=== PATIENT | female | born 1945 | race Caucasian/White ===

== ENCOUNTER 2018-01-22 07:40 | Observation (INO) | payer MEDICARE, BC ==
[2018-01-22] MEDS ORDERED: Aspirin 81 mg CHEW TAB* 81 MG TAB.CHEW PO ONE (07:52)
--- NOTE | 2018-01-22 08:08 | ED ---
HPI Chest Pain - HPI Summary HPI Summary: Pt is a 73 y/o female who presents to the ED c/o chest pressure. She woke up this morning with mid-sternal chest pressure. Pt took half a Xanax and drank some water, which did not help. She then took another half Xanax. On the way to the ED, she felt nauseated and was burping a lot, which relieved the pressure some. Pt then felt lightheaded. She denies any weakness, dizziness, SOB, or vomiting. Pt is on diuretics. She denies taking potassium supplements. Pt is accompanied by her . HR 43 bpm while in the room. PMHx HTN and minor heart valve leakage. She has seen Dr. Marcus in the past. - History of Current Complaint Chief Complaint: EDChestPainROMI Time Seen by Provider: 01/22/18 07:52 Hx Obtained From: Patient Onset/Duration: Started Hours Ago - This morning, Still Present Timing: Constant Current Severity: Mild Pain Intensity: 3 Pain Scale Used: 0-10 Numeric Chest Pain Location: Mid Sternal Chest Pain Radiates: No Character: Pressure/Squeezing Aggravating Factor(s): Nothing Alleviating Factor(s): Spontaneous Resolution Associated Signs and Symptoms: Positive: Lightheadedness, Nausea. Negative: Vomiting - Allergy/Home Medications Allergies/Adverse Reactions: Allergies Allergy/AdvReac Type Severity Reaction Status Date / Time RED FOOD COLORING Allergy Palpitation Uncoded 12/15/12 10:31 s PMH/Surg Hx/FS Hx/Imm Hx Cardiovascular History: Reports: Hx Hypertension - ON DAILY MEDS, CONTROLLED, Hx Valvular Heart Disease - "MINIR" HEART VALVE LEAKS GI History: Reports: Other GI Disorders - DIVERTICULOSIS, NO Sx Musculoskeletal History: Reports: Hx Arthritis - HANDS, SHOULDERS, HIPS, Other Musculoskeletal History - HYPERLORDOSIS Sensory History: Reports: Hx Cataracts, Hx Contacts or Glasses - GLASSES Opthamlomology History: Reports: Hx Cataracts, Hx Contacts or Glasses - GLASSES Psychiatric History: Reports: Hx Anxiety - PRN MEDS - Surgical History Surgery Procedure, Year, and Place: YOUNG CHILD T&A [facility]J. 1970 ANAL [facility]. 1999 RT SHOULDER [facility]. 2000 [facility] Hx Anesthesia Reactions: Yes - SLOW TO WAKE UP Infectious Disease History: No Infectious Disease History: Denies: Traveled Outside the [place] in Last 30 Days - Family History Known Family History: Positive: Cardiac Disease, Hypertension, Other - stroke - Social History Alcohol Use: None Hx Substance Use: No Substance Use Type: Reports: None Hx Tobacco Use: No Smoking Status (MU): Never Smoked Tobacco Review of Systems Positive: Chest Pain - pressure Negative: Shortness Of Breath Positive: Nausea, Other - burping. Negative: Vomiting Neurological: Other - lightheadedness, NEGATIVE: dizziness Negative: Weakness All Other Systems Reviewed And Are Negative: Yes Physical Exam - Summary Physical Exam Summary: Appearance: Well appearing, no pain distress Skin: warm, dry, reflects adequate perfusion Head/face: normal Eyes: EOMI, MARIJA ENT: mucous membranes moist Neck: supple, non-tender Respiratory: CTA, breath sounds present Cardiovascular: bradycardia, slight murmur, pulses symmetrical Abdomen: non-tender, soft Bowel Sounds: present Musculoskeletal: normal, strength/ROM intact Neuro: normal, sensory motor intact, A&Ox3 Triage Information Reviewed: Yes Vital Signs On Initial Exam: Initial Vitals Temp Pulse Resp BP Pulse Ox 97.1 F 36 18 135/42 99 01/22/18 07:46 01/22/18 07:46 01/22/18 07:46 01/22/18 07:46 01/22/18 07:46 Vital Signs Reviewed: Yes Diagnostics - Vital Signs Vital Signs Temp Pulse Resp BP Pulse Ox 01/22/18 07:46 97.1 F 36 18 135/42 99 - Laboratory Result Diagrams: 01/22/18 08:18 01/22/18 08:18 Lab Statement: Any lab studies that have been ordered have been reviewed, and results considered in the medical decision making process. - Radiology CXR Radiology Interpretation Completed By: Radiologist Summary of Radiographic Findings: NO ACTIVE CARDIOPULMONARY DISEASE. ED physician reviewed radiology report. - EKG 7:57 Cardiac Rate: Bradycardia - [address] Segment: Normal Summary of EKG Findings: 2nd degree AV block type II, RBBB, nl axis 8:13 Cardiac Rate: NL - 79 bpm EKG Rhythm: Sinus Rhythm ST Segment: Normal Summary of EKG Findings: RBBB, nl axis Re-Evaluation - Re-Evaluation First Eval Re-Evaluation Time: 08:10 Change: Improved Comment: Pt's HR now in the 80s. Chest Pain Course/Dx - Course Course Of Treatment: Nurse's note reviewed. Patient presents with chest pressure and lightheadedness that began this morning. She is in [place] type II block on arrival. Cardiology consultation and came to the ER promptly. Patient spontaneously converted shortly after arrival. She has been in normal sinus rhythm with occasional episodes of block since. Discussed with hospitalist who will be accepting the patient to telemetry floor. 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 Admit for further. - Chest Pain Differential Diagnosis/HQI/PQRI: Acute MO, ACS, Angina, GI Disease, Lower Respiratory Infection, Other: - Arrhythmia - Diagnoses Provider Diagnoses: Chest pain, Second degree AV block, Mobitz type II, Hypertension - Provider Notifications Discussed Care Of Patient With: Booker Lim Time Discussed With Above Provider: 08:15 Instructed by Provider To: Other - Dr. Lim will visit the pt in the ED. At 8: [address] Coates in the ICU, and he will participate as needed. At 8:32 Dr. Lim arrived to the ED. At 8:51 Dr. Lim would like to observe the pt for longer. At 9:10 Dr. Chan accepts pt for admission. - Critical Care Time Critical Care Time: 30-74 min - CCT is EXCLUSIVE of separately billable procedures. Discharge - Sign-Out/Discharge Documenting (check all that apply): Patient Departure - Admit - Discharge Plan Condition: Fair Disposition: ADMITTED TO [facility] Referrals: Steve Thomas MD [Primary Care Provider] - - Billing Disposition and Condition Condition: FAIR Disposition: Admitted to [facility] - Attestation Statements Document Initiated by Lorrieibe: Yes Documenting Scribe: Monalisa Aviles Provider For Whom Scribe is Documenting (Include Credential): Tariq Crespo MD Scribe Attestation: Monalisa Eldridge, scribed for Tariq Crespo MD on 01/22/18 at 1001. Scribe Documentation Reviewed: Yes Provider Attestation: The documentation as recorded by the Monalisa fuentes accurately reflects the service I personally performed and the decisions made by me, Tariq Crespo MD Status of Scribe Document: Viewed
[2018-01-22 08:30] LABS: ABS Basophils 0.1 10^3/ul (0-0.2); ABS Eosinophils 0.1 10^3/ul (0-0.6); ABS Lymphocytes 1.5 10^3/ul (1.0-4.8); ABS Monocytes 0.7 10^3/ul (0-0.8); ABS Neutrophils 4.6 10^3/ul (1.5-7.7); ABS Nucleated RBC 0 10^3/ul; Eosinophil % 2.1 %; Hematocrit 45 % (35-47); Hemoglobin 14.7 g/dl (12.0-16.0); Mean Corpuscular HGB Conc 33 g/dl (31-36); Mean Corpuscular Hemoglobin 27 pg (27-31); Mean Corpuscular Volume 82 fL (80-97); Mean Platelet Volume 7.9 fL (7.4-10.4); Nucleated Red Blood Cells % 0.1; Platelet Count 225 10^3/ul (150-450); Red Blood Count 5.45 10^6/ul (4.00-5.40); Red Cell Distribution Width 17 % (10.5-15); White Blood Count 6.9 10^3/ul (3.5-10.8)
[2018-01-22 08:36] LABS: INR 0.95 (0.77-1.02)
[2018-01-22 08:54] LABS: EGFR Non-African American 54.8 (>60)
[2018-01-22] MEDS ORDERED: NS 0.45% KCl 20 Meq 1000 ML* 1,000 ML IV SCH (09:27)
[2018-01-22] MEDS ORDERED: Al Hydrox/Mg Hydrox/Simet LIQ* 30 ML UDC PO PRN (10:03)
[2018-01-22] MEDS ORDERED: Acetaminophen TAB* 325 MG PO PRN (10:03)
--- NOTE | 2018-01-22 12:38 | ECHO ---
Patient: ADY ALBERTO [facility] Rec#: [id number] : 1945 Date: 01/22/2018 Age: 73y Height: 165 cm / 65.0 in Weight: 180 kg / 396.7 lbs Sex: F BSA: 2.65 Room#: ED7 Admit Date#: 01/22/2018 Type: Inpatient Referring: Booker Lim MD Reading: Bookre Lim MD Breaker Unit Assembler: Rhoda Short BRENDA CC: Steve Thomas MD Transthoracic Echocardiogram Indication: Abn EKG BP: 164/84 HR: 65 Rhythm: NSR Findings History: HTN,minor valve leaks,anxiety, second degree heart block. Technical Comments: The study quality is good. Completed at 1103. Left Ventricle: The left ventricular chamber size is normal. The estimated ejection fraction is 55-60%. Small area of basal inferior hypokinesis which may be a normal variant. Abnormal left ventricular diastolic function is observed. Abnormal left ventricular diastolic filling is observed, consistent with impaired relaxation. Left Atrium: The left atrium is normal in size. Right Ventricle: The right ventricular cavity size is normal. The right ventricular global systolic function is normal. Right Atrium: The right atrial cavity size is normal. Aortic Valve: The aortic valve is trileaflet. There is no evidence of aortic regurgitation. There is no evidence of aortic stenosis. Mitral Valve: The mitral valve leaflets are mildly thickened. There is a trace of mitral regurgitation. There is no evidence of mitral stenosis. Tricuspid Valve: The tricuspid valve leaflets are normal. There is mild tricuspid regurgitation. There is evidence that pulmonary hypertension may be underestimated. There is no tricuspid stenosis. Pulmonic Valve: The pulmonic valve appears normal. There is no evidence of pulmonic regurgitation. There is no pulmonic stenosis. Pericardium: The pericardium appears normal. Aorta: The ascending aorta is not well visualized. There is no dilatation of the aortic arch. There is no dilation of the aortic root. Pulmonary Artery: The main pulmonary artery appears normal. Venous: The venous system is not well visualized. Conclusions The estimated ejection fraction is 55-60%. Abnormal left ventricular diastolic filling is observed, consistent with impaired relaxation. There is a trace of mitral regurgitation. There is mild tricuspid regurgitation. No prior echo report at this time. Measurements Name Value Normal Range RVIDd (AP) 2D 2.1 cm (0.9 - 2.6) RVDdMajor (2D) 3 cm (2.2 - 4.4) RAd ISD 4CH 4.5 cm (3.4 - 4.9) RA (A4C)W 3.5 cm (2.9 - 4.6) IVSd (2D) 0.9 cm (0.6 - 1) LVPWd (2D) 0.9 cm (0.6 - 1) LVIDd (2D) 4.4 cm (3.6 - 5.4) LVIDs (2D) 3.1 cm - LV FS (2D) 30 % (25 - 45) Aortic Annulus 1.9 cm (1.4 - 2.6) Ao root diameter (2D) 2.7 cm (2.1 - 3.5) Aortic arch 2.7 cm (1.8 - 3.4) LA dimension (AP) 2D 3 cm (2.3 - 3.8) LAd ISD 4CH 4.2 cm (2.9 - 5.3) LA ISD 4CH W 3.4 cm (2.5 - 4.5) Name Value Normal Range LA ESV SP 4CH (A/L) 14.3 ml - LA ESV SP 2CH (A/L) 20.8 ml - Name Value Normal Range MV E-wave Vmax 0.8 m/sec - MV deceleration time 243 msec - MV A-wave Vmax 0.8 m/sec - MV E:A ratio 0.9 ratio - LV septal e' Vmax 0.09 m/sec - LV lateral e' Vmax 0.09 m/sec - LV E:e' septal ratio 8.89 ratio - LV E:e' lateral ratio 8.89 ratio - Name Value Normal Range AV Vmax 1.5 m/sec - AV VTI 34.6 cm - AV peak gradient 8 mmHg - AV mean gradient 8 mmHg - LVOT Vmax 0.8 m/sec - LVOT VTI 19.6 cm - LVOT peak gradient 2 mmHg - LVOT mean gradient 1 mmHg - Name Value Normal Range TR Vmax 2.1 m/sec - TR peak gradient 17 mmHg - RAP 8 mmHg - RVSP 25 mmHg - Name Value Normal Range PV Vmax 0.9 m/sec - PV peak gradient 3 mmHg -
[2018-01-22] MEDS: amLODIPine TAB* 5 MG PO SCH (13:18)
[2018-01-22] MEDS ORDERED: amLODIPine TAB* 5 MG ONE (13:21)
[2018-01-22] MEDS: Heparin VIAL(*) 5000 UNITS/ML VIAL (FIVE THOUSAND) SUBCUT SCH ×2 (14:47→20:20)
--- NOTE | 2018-01-22 15:44 | CONS ---
CC: Dr. Thomas; Dr. Booker Lim CARDIOLOGY CONSULTATION REPORT: DATE OF CONSULT: 01/22/18 PATIENT OF: Dr. Thomas and Dr. Booker Lim. REASON FOR EVALUATION: Symptomatic bradycardia, chest discomfort. HISTORY OF PRESENT ILLNESS: This is a very pleasant 73-year-old woman, who has a history of hyperlipidemia, hypertension, who was in her usual state of health until she woke up earlier this morning and felt pressure in her sternal area. It lasted about half an hour. She drank some water and took a Xanax because she thought it might be related to anxiety. She said it did not really resolve and she took another half of Xanax. She kept drinking warmer and felt like the need to burp, but could not. After about half an hour, she decided to get in the car and drive to the hospital with her . While in the car, she was nauseated and burped and relieved the chest pressure. When she got to the hospital, she waited in the parking lot to see if her symptoms recurred. Her went in to go to use the bathroom. While he was in the bathroom, she got lightheaded. She came back to the car after about 10 minutes and they decided to come to the emergency room. In the emergency room, she had no chest pain, but was noted to be lightheaded, no vertigo, and was noted to be in sinus rhythm with 2:1 AV block and right bundle-branch block. This was at 0757. After a few minutes, by 0813, it had resolved and she was in normal sinus rhythm. She denied any diaphoresis at the time. She denied chest pressure or nausea at the time she was in the emergency room. The lightheadedness had lasted about 10 minutes. She is asymptomatic now. She has no chest pain and no diaphoresis. She denies any fever, chills, sweats, or diarrhea. She does say that she had a sirloin steak, sweet potato, milk, and ice cream last night for dinner which is not unusual for her. She denies previous history of chest discomfort except for an episode many years ago when she was seen at the [facility]. She had chest pain for an hour and she said it was relieved with some kind of cocktail that they gave her and burping. She said she has had a remote stress test in the past that was negative according to the patient, although we do not have the records. She also said she had evaluation in the past, which reported mild MR and mild TR. She denies orthopnea or peripheral edema. She has stairs in her house and gets short of breath with 1 flight of stairs, but she continues to go up and down stairs, she actually feels better. She has had no exertional chest pain. She denies recent rashes, tick bites, fever, chills, sweats, or change in her weight. PAST MEDICAL HISTORY: Includes hypertension, controlled on Maxzide; anxiety which started as panic attacks during menopause and she takes occasional doses of Xanax. She has a history of borderline hyperlipidemia, but does not take any medicines for it. PAST SURGICAL HISTORY: Includes tonsillectomy, D and C, cataract surgery. She said that she had a colonoscopy in the past with no sedation, which went fine. She said when she had sedation, she had elevated blood pressures, after which it was difficult to control. She drinks about 1 alcoholic beverage a year. She has rare cadinene and had none in the last 2 days. MEDICATIONS: As an outpatient include: 1. [place] 3 fatty acids 1 cap t.i.d. 2. Aleve 220 mg p.r.n. 3. maxide 37.5/12.5 one q.a.m. 4. Xanax 0.5 mg at bedtime p.r.n. ALLERGIES: Her allergies include RED DYE which results in palpitations. She says that she had a previous episode of syncope when she was 17 and had a laceration to her finger and became syncopal after seeing blood. FAMILY HISTORY: She has 2 sisters, one who is estranged and a brother who committed suicide about 5 years ago after depression and serving in [place]. Her mother of an [place] at 80. SOCIAL HISTORY: She is a retired employee of [employer]. She is and has no children. REVIEW OF SYSTEMS: Review of systems x12 was negative except as above. PHYSICAL EXAM: On physical exam, she is a well-developed, well-nourished female , in no apparent distress. Atraumatic, normocephalic. Extraocular muscles intact. Sclerae anicteric. No significant JVD. Carotids 2+ with bruits bilaterally. Cardiac Exam: S1, S2 with a 2/6 holosystolic murmur at the left lower sternal border. Chest was clear. No CVAT. Abdomen: Bowel sounds present. Nontender. No hepatosplenomegaly. Femoral pulses intact without bruits. Distal pulses diminished, but present. No edema. Motor strength 5/5 bilaterally. Deep tendon reflex is 2/4, alert, and oriented x3. Skin turgor normal, no rashes. Her temperature was 97.1, initial blood pressure was 138/81 with a pulse of 66, and then heart rate 44, blood pressure 164/57, O2 sat 97% on room air. DIAGNOSTIC STUDIES/LAB DATA: Labs include relatively normal CBC with hematocrit of 45. Potassium is 3.5, BUN of 23, creatinine of 0.99, glucose of 106, and troponin of 0.0 at 0818. Her EKG from 0757 revealed sinus rhythm with 2:1 AV block and a right bundle- branch block. No acute ST-T changes. An EKG from 0813 revealed sinus rhythm with 1:1 conduction, right bundle-branch block, and nonspecific inferior ST changes, slightly more pronounced compared to 0757. Chest x-ray, no acute pulmonary disease. IMPRESSION AND PLAN: My impression is that Ms. Trujillo had an episode of chest pressure, relieved by burping, followed by nausea and lightheadedness and found to have symptomatic bradycardia. The etiology of her symptoms is unclear. It is possible that she had some degree of vagal tone, which may have exacerbated her conduction system disease versus intrinsic conduction system diseasel She is 73 and has right bundle-branch block; therefore, she is at risk for conduction system disease. In addition, she had chest discomfort of unclear etiology. This raises the possibility of a GI issue or ischemia. I discussed this with her and her and I have recommended the followin. I suggest we continue monitoring to see if she has recurrent atrioventricular block without provocation, which may dictate the need for pacemaker. 2. She is to have an evaluation for ischemia with a stress nuclear once her next troponin has been obtained and she rules out for infarct. 3. She is to have an echo to evaluate for wall motion abnormality and evaluate her MR and TR. 4. She is to have a carotid Doppler to evaluate her carotid bruits. 5. She is to have a lipid profile, would consider adding a statin if indeed we confirm she has carotid atherosclerosis. 6. I would recommend continuing blood pressure control. 7. She appears to be mildly dehydrated. We will hydrate her and place her on potassium. 8. prison she may require an event monitor to see if she has recurrent atrioventricular block especially if she has symptoms. 9. She understands even if her stress test is negative, she is at risk for developing conduction system disease and atherosclerosis in the future. [id number]/[facility] #: [id number] addendum; Her echo and stress test did not reveal significant valvular disease or ischemia (LOW RISK). She was hypertensive at the stress test. Carotid atherosclerosis documented by doppler. Discussed with Dr. Chan and the patient. Plan: monitor overnight for recurrence of significant avblock start amlodipine 2.5 mg qd for bp stop maxided start atorvastatin patient advised to check bp/hr periodically and particularly with symptoms will consider outpatient monitoring with event monitor after discharge. KIM 12.14.18 4:45 PM [place]
--- NOTE | 2018-01-22 18:56 | HP ---
CC: Dr. Thomas.* HISTORY AND PHYSICAL: DATE OF ADMISSION: 01/22/18 PROVIDER: Graciela Kim NP. PRIMARY CARE PROVIDER: Dr. Steve Thomas. ATTENDING PHYSICIAN WHILE IN THE HOSPITAL: Dr. Lencho Chan * (dictated by Graciela Kim NP). CHIEF COMPLAINT: Chest pain. HISTORY OF PRESENT ILLNESS: Ms. Trujillo is a 73-year-old female with a past medical history significant for hypertension and macular degeneration, who presented to the emergency room with complaints of mid substernal chest pressure that started shortly after she woke this a.m. She reports that she attempted to drink a glass of water as she felt that this was related to gas. After drinking the water, she had no relief and was unable to belch, so she took half a tablet of Xanax, again with no relief, so then she drank some more water. The patient reports she again had no relief, so she took another half a tablet of Xanax, she reported that she laid down and continued to have no relief of the midsternal chest pressure. She did report nausea with the pressure in her chest. Due to the chest pressure being unrelieved, her drove her to the hospital at which point the patient reports that on her way here, she did belch several times and the pressure was relieved. As they were sitting in the parking lot, the patient again developed some chest pressure and became lightheaded. Due to these concerns, she presented to the emergency room for further evaluation. The patient has denied any further episodes of chest pressure since admission to the emergency room. While in the emergency room, the patient had routine lab work drawn. Her initial EKG showed Mobitz II, heart block at a rate of 44. Subsequent EKG showed sinus rhythm at a rate of 79. She was seen in consultation by Dr. Lim from Cardiology, who repeated troponin and recommended nuclear stress test. PAST MEDICAL HISTORY: Significant for: 1. Hypertension. 2. Macular degeneration. PAST SURGICAL HISTORY: 1. Tonsillectomy. 2. D and C x2. 3. Right shoulder surgery. 4. Cataract surgery bilaterally. MEDICATIONS: Home medications include: 1. Maxzide 1 cap p.o. daily 37.5/25. 2. PreserVision 1 cap p.o. b.i.d. 3. Alprazolam 0.5 mg p.o. at bedtime p.r.n. 4. Coronado-3 fish oil 1 cap p.o. b.i.d. 5. Naproxen 220 mg p.o. q.6 hours as needed for pain. ALLERGIES: Allergy to RED DYE. FAMILY HISTORY: Mother with TX in her 80s. Father with hypertension and stroke. No reported history of diabetes. Grandfather with a history of stomach cancer. Grandmother with a history of breast cancer. SOCIAL HISTORY: Denies any tobacco or illicit drug use. Does report rare alcohol use. She is retired. She is . She lives with her . Surrogate decision maker in the event she is unable to make her own decisions is her , Sagar, his phone number is [phone]. She is a full code. REVIEW OF SYSTEMS: There was no documented fever. There has been no significant weight change. No double vision. No ear discharge. No rhinorrhea. No sore throat. The patient does report mid substernal chest pressure and nausea. Denies any diaphoresis. She denies any orthopnea or nocturnal dyspnea. There was no abdominal pain. No vomiting. Denies any dysuria or urinary frequency. No seizures. No loss of consciousness. No pruritus or skin ulceration. Review of 14 systems was completed and all others were negative. PHYSICAL EXAMINATION GENERAL: At this time, Ms. Trujillo is a 73-year-old female, she appears well, sitting on the stretcher in the emergency room. She is not in any acute distress. VITAL SIGNS: Blood pressure 135/42, heart rate was 79, respirations 18, O2 saturation 99% on room air, temperature was 97.1. HEENT: Head is atraumatic, normocephalic. Eyes: EOMs are intact. Sclerae anicteric and not pale. Oral mucosa appeared to be moist. NECK: Supple. LUNGS: Clear to auscultation bilaterally. No wheezes, rales, or rhonchi. CARDIAC: S1, S2. Regular rate and rhythm. No murmurs, rubs, or gallops. ABDOMEN: Soft and nontender. Bowel sounds are present x4. EXTREMITIES: Pulses are +2 bilaterally. There is no lower extremity edema. She is able to move all 4 extremities with 5/5 strength. NEUROLOGIC: She is awake, alert and oriented x3. Speech is clear. Thought process is intact. There are no gross focal deficits. SKIN: Intact. DIAGNOSTIC STUDIES/LAB DATA: WBCs are 6.9, RBCs 4.45, hemoglobin 14.7, hematocrit was 45, platelet count was 225. INR is 0.95. D-dimer less than 200. Sodium 136, potassium 3.5, chloride 104, carbon dioxide was 23, anion gap was 9, BUN was 23, creatinine 0.99, lactic acid was 1.4, glucose 106. Calcium 9.0, phosphorus 2.8, magnesium 2.0. ASTs were 15, ALTs were 10. Troponin initially was 0.00. Repeat troponin was 0.03. TSH was 1.91. She had a chest x-ray on 01/22/18, radiologist's impression: No active cardiopulmonary disease. She had an electrocardiogram. Initial electrocardiogram showed Mobitz II heart block at a rate of 44. Repeat EKG showed sinus rhythm at a rate of 79 with a right bundle branch block. Carotid Doppler is currently pending. Transthoracic echocardiogram is currently pending. ASSESSMENT AND PLAN: Ms. Trujillo is a 73-year-old female who presented to the emergency room with complaints of substernal chest pain that started shortly after waking this a.m. Due to the chest pain and Mobitz II heart block on arrival to the emergency room, we were asked to see and evaluate her for admission. She will be admitted under observation for: 1. Chest pain. She will be admitted to rule out acute coronary syndrome. The patient did have Mobitz II heart block on arrival to the emergency room, that is now in sinus rhythm at a rate of 79 with a right bundle-branch block. She was seen by Cardiology by Dr. Lim, who has recommended a nuclear stress test , a transthoracic echocardiogram and repeat troponins. She did receive aspirin 325 mg in the emergency room. She will be placed on the floor and monitored on telemetry while waiting for her stress test. We will continue to trend her troponins. The patient does have a JONO score of 2 giving her an 8% risk of all- cause mortality at 14 days requiring urgent revascularization. 2. Hypertension. The patient should continue on Dyazide as previously prescribed. 3. DVT prophylaxis: I will place her on heparin subcu. 4. Code status: She is a full code. 5. Fluids, electrolytes, and nutrition: She is n.p.o. at this time. After her nuclear stress test, she can resume heart healthy, low sodium diet. TIME SPENT: Time spent on this admission was 60 minutes, greater than half that time was spent [id number] with the patient obtaining my history and physical, the other half of the time was going over my plan of care and implementing my plan of care. I have discussed this with my attending, Dr. Lencho Chan and he is in agreement with my plan. GRACIELA KIM, CHILD WELFARE CONSULTANT [id number]/CPS #: [id number] [place]
[2018-01-22] MEDS ORDERED: ALPRAZolam TAB* 0.5 MG PO PRN (20:36)
[2018-01-22] MEDS ORDERED: Atorvastatin* 20 MG TAB PO SCH (21:00)
[2018-01-23] MEDS: Heparin VIAL(*) 5000 UNITS/ML VIAL (FIVE THOUSAND) SUBCUT SCH (04:48)
[2018-01-23] MEDS ORDERED: Aspirin 81 mg CHEW TAB* 81 MG TAB.CHEW PO SCH (09:00)
[2018-01-23] MEDS: amLODIPine TAB* 5 MG PO SCH (09:39)
[2018-01-23 11:39] VITALS: BP 127/64
--- NOTE | 2018-01-24 00:30 | DS ---
CC: Dr. Thomas; Dr. Lim DISCHARGE SUMMARY: DATE OF ADMISSION: 01/22/18. DATE OF DISCHARGE: 01/23/18. PRIMARY CARE PROVIDER: Dr. Thomas. CONSULTING MANAGER SYSTEMS: Dr. Lim. DISCHARGE DIAGNOSES: 1. Atypical chest pain, acute coronary syndrome, ruled out. 2. Right internal carotid stenosis. 3. 2:1 heart block. SECONDARY DIAGNOSES: 1. Hypertension. 2. Macular degeneration. 3. Status post tonsillectomy. 4. Status post D and C x2. 5. Status post right shoulder surgery. 6. Status post cataract surgery bilaterally. MEDICATIONS LIST: 1. Naproxen 220 mg p.o. q.6 hours p.r.n. pain. 2. Fish Oil 1 capsule p.o. b.i.d. 3. Alprazolam 0.5 mg p.o. at bedtime as needed for anxiety. 4. PreserVision AREDS 1 capsule p.o. b.i.d. Maxzide was discontinued. New medications: 1. Aspirin 81 mg p.o. daily. 2. Atorvastatin 20 mg p.o. daily. 3. Amlodipine 2.5 mg p.o. daily. HOSPITAL COURSE: Mrs. Trujillo is a 73-year-old lady with a past medical history as stated above that p resented to the emergency room with complaints of chest pressure. For more details about her present ation, I refer you to her history and physical. While in the parking lot, the patient had chest pres sure and became lightheaded and by the time she came to the emergency room, the initial EKG showed br adycardia with a heart rate of 44 with a Mobitz II heart block and a subsequent EKG showed sinus rhyt hm at 79 beats per minute. The patient was admitted to the telemetry floor for further evaluation and management. She was seen in consultation by Cardiology (Dr. Lim), and his impression was that she had presente d with chest pressure relieved by burping followed by nausea and lightheadedness, and found to have s ymptomatic bradycardia. The etiology of her symptoms is unclear and it is possible that she had some degree of vagal tone, which may have exacerbated her conduction system disease versus intrinsic cond uction system disease. She is 73 and has a right bundle-branch block; therefore, she is at risk for conduction system disease. In addition, she had chest discomfort of unclear etiology that raises the possibility of GI issue or ischemia. He recommended workup including a stress test and echocardiogram, carotid Doppler as he found bruit a nd he also recommended blood pressure control. The patient had serial troponins, the third one was slightly elevated at 0.04, but the three other on es were negative. She underwent a Myoview stress test and there was partially reversible defect of the inferior wall th at partially resolves with attenuation correction and is felt to be likely artifactual. There are no definite fixed or reversible perfusion defects. The patient also underwent a transthoracic echocardiogram that showed ejection fraction of 55% to 60% with trace of MR, mild TR. Carotid Doppler showed moderate plaque within the proximal and mid right internal carotid artery givi ng rise to a 50% to 69% stenosis. No hemodynamically significant stenosis on the left. Her lipid pr ofile showed cholesterol of 234 with an LDL of 156, HDL of 40.4. Dr. Lim's recommendations were to start low-dose amlodipine as she was quite hypertensive at the s tress test. For her current disease, she was started on low- dose aspirin and atorvastatin, and she had no further episodes of any significant AV block. She is felt to be medically stable to be discharged home today, and she will follow up with Dr. Vinicius boateng for consideration for outpatient monitoring with an event monitor after discharge. If she continue s to have episodes of heart block, she may be a candidate for a pacemaker. PHYSICAL EXAMINATION: Vital Signs: Temperature 97.0, heart rate is 75, respiratory rate 16, oxygen saturation 100% on room air, blood pressure is 127/64. General: The patient is a pleasant elderly la dy, sitting up in bed, in no acute distress. CVS: Normal S1, S2. Regular rate and rhythm. Chest: Breath sounds bilaterally with no added sounds. Neuro: She is alert and oriented x3. Able to move all 4 extremities. DIET: Heart-healthy diet. ACTIVITIES: As tolerated. DISPOSITION: To home. STATUS IN THE HOSPITAL: Observation. Please keep in mind this is a summarized version of this patient's hospital stay. If you need more in formation, please feel free to call me at [phone] or please obtain the full medical records. TIME SPENT: Approximately 45 minutes was spent to complete this discharge. [id number]/[facility] #: [id number]
== END 2018-01-23 12:15 | disposition home or self-care (01) ==
LOC: ED 07:40 → MEDTELE 10:03
PROVIDERS: ADMIT Internal Medicine; ATTEND Internal Medicine
DX: R07.89 Other chest pain (principal); I65.21 Occlusion and stenosis of right carotid artery; I44.1 Atrioventricular block, second degree; H35.30 Unspecified macular degeneration; I10 Essential (primary) hypertension; R42 Dizziness and giddiness; R11.0 Nausea; R00.1 Bradycardia, unspecified
CPT/HCPCS: 36415; 71045; 78452; 80053; 80061; 82550; 83036; 83605; 83735; 84100; 84443; 84484; 85025; 85379; 85610; 93005; 93017; 93306; 93880; 96372; A9270-GY; A9502; G0378; J1644

== ENCOUNTER 2018-01-25 21:08 | Emergency (ER) | payer MEDICARE, BC ==
--- NOTE | 2018-01-25 21:16 | ED ---
HPI Cardiac - HPI Summary HPI Summary: This patient is a 73 year old female brought in by ambulance to [facility] with a chief complaint of lightheadedness since 1-2 hours ago. Patient was seen at [facility] 3 days ago for similar symptoms, where she received a workup and a stress test. Patient was cleared for discharged then. Today, patient states that she was at home, watching TV, when she felt lightheaded again. EMS states that the patient was asymptomatic during transit, except for a spike in rate once. EMS EKG notes RBBB. The pain is rated 0/10 in severity. Symptoms aggravated by nothing. Symptoms alleviated by nothing. Patient additionally reports heart palpitations that comes with the lightheadedness. - History of Current Complaint Stated Complaint: LIGHT HEADED Time Seen by Provider: 01/25/18 21:13 Hx Obtained From: Patient Onset/Duration: Started Hours Ago, Resolved Timing: Intermittent Current Severity: None Pain Intensity: 0 Pain Scale Used: 0-10 Numeric Aggravating Factor(s): Nothing Alleviating Factor(s): Nothing Associated Signs and Symptoms: Positive: Other: - palpitations - Allergy/Home Medications Allergies/Adverse Reactions: Allergies Allergy/AdvReac Type Severity Reaction Status Date / Time chlorhexidine Allergy Rash Verified 01/25/18 22:20 red (food color) Allergy Palpitation Verified 01/22/18 13:20 s dust mites Allergy Congestion Uncoded 01/25/18 22:21 PMH/Surg Hx/FS Hx/Imm Hx Previously Healthy: No Cardiovascular History: Reports: Hx Hypertension - ON DAILY MEDS, CONTROLLED, 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 1970 ANAL FISTULA [facility]. 1999 RT SHOULDER J[facility]. 2000 D&C [facility] Hx Anesthesia Reactions: Yes - SLOW TO WAKE UP - Family History Known Family History: Positive: Cardiac Disease, Hypertension, Other - stroke - Social History Lives: With Family Alcohol Use: Rare Hx Substance Use: No Substance Use Type: Reports: None Hx Tobacco Use: No Smoking Status (MU): Never Smoked Tobacco Review of Systems Negative: Fever Positive: Palpitations Neurological: Other - lightheadedness All Other Systems Reviewed And Are Negative: Yes Physical Exam - Summary Physical Exam Summary: Appearance: Well-appearing, Well-nourished, lying in bed comfortably Skin: Warm, dry, no obvious rash Eyes: sclera anicteric, no conjunctival pallor ENT: mucous membranes moist, pharynx appears normal Neck: Supple, nontender Respiratory: Clear to auscultation, no signs of respiratory distress Cardiovascular: Normal S1, S2. No murmurs. Normal distal pulses in tibial and radial bilaterally. Abdomen: Soft, nontender, normal active bowel sounds present Musculoskeletal: Normal, Strength/ROM Intact Neurological: A&Ox3, awake and alert, mentation is normal, speech is fluent and appropriate Psychiatric: affect is normal, does not appear anxious or depressed Triage Information Reviewed: Yes Vital Signs Reviewed: Yes Diagnostics - Laboratory Result Diagrams: 01/25/18 22:16 01/25/18 22:16 Lab Statement: Any lab studies that have been ordered have been reviewed, and results considered in the medical decision making process. - EKG 2126 Cardiac Rate: NL EKG Rhythm: Sinus Rhythm - 75 BPM Summary of EKG Findings: An EKG, taken 2126, reveals NSR (75 BPM), RBBB Disposition - Course Course Of Treatment: This patient is a 73 year old female brought in by ambulance to [facility] with a chief complaint of lightheadedness since 1-2 hours ago. Today, patient states that she was at home, watching TV, when she felt lightheaded again. EMS states that the patient was asymptomatic during transit, except for a spike in rate once. Bloodwork Obtained. In the ED course the patient was given NS 0.9% IV bolus. We discussed patient care with Dr. Velez ( Hospitalist) at 0002 and they recommended discharging the patient home. Patient will be discharged with a dx of near-syncope. Patient is advised to follow up with PCP in 3 days. The patient is agreeable with this plan. - Diagnoses Provider Diagnoses: Near syncope - Physician Notifications Discussed Care Of Patient With: Gio Velez - Hospitalist Time Discussed With Above Provider: 00:02 - We discussed patient care with Dr. Velez (Hospitalist), who recommends discharging the patient home. Discharge - Sign-Out/Discharge Documenting (check all that apply): Patient Departure - Discharge Plan Condition: Stable Disposition: HOME Referrals: Steve Thomas MD [Primary Care Provider] - - Attestation Statements Document Initiated by Lorrieibe: Yes Documenting Scribe: Christine Girard Provider For Whom Lorrieibe is Documenting (Include Credential): Tr Barry MD Scribe Attestation: Christine Eldridge, scribed for Tr Barry MD on 01/26/18 at 0019. Status of Scribe Document: Ready
[2018-01-25] MEDS ORDERED: NS 0.9% 1000 ML* 1,000 ML IV ONE (22:07)
[2018-01-25 22:22] LABS: ABS Basophils 0.1 10^3/ul (0-0.2); ABS Eosinophils 0.2 10^3/ul (0-0.6); ABS Lymphocytes 1.7 10^3/ul (1.0-4.8); ABS Monocytes 0.7 10^3/ul (0-0.8); ABS Neutrophils 3.4 10^3/ul (1.5-7.7); ABS Nucleated RBC 0 10^3/ul; Eosinophil % 2.7 %; Hematocrit 39 % (35-47); Hemoglobin 13.2 g/dl (12.0-16.0); Mean Corpuscular HGB Conc 34 g/dl (31-36); Mean Corpuscular Hemoglobin 27 pg (27-31); Mean Corpuscular Volume 81 fL (80-97); Mean Platelet Volume 7.8 fL (7.4-10.4); Nucleated Red Blood Cells % 0; Platelet Count 240 10^3/ul (150-450); Red Blood Count 4.84 10^6/ul (4.00-5.40); Red Cell Distribution Width 17 % (10.5-15); White Blood Count 5.9 10^3/ul (3.5-10.8)
[2018-01-25 22:39] LABS: Albumin 3.7 g/dL (3.2-5.2); Albumin/Globulin Ratio 1.4 (1-3); BUN/Creatinine Ratio 14.6 (8-20); Calcium 8.8 mg/dL (8.6-10.3); EGFR Non-African American 56.8 (>60); Globulin 2.7 g/dL (2-4); Potassium 3.7 mmol/L (3.5-5.0); Total Bilirubin 0.3 mg/dL (0.2-1.0); Total Protein 6.4 g/dL (6.4-8.9)
[2018-01-26 00:13] VITALS: BP 152/75
--- NOTE | 2018-01-26 07:53 | CONS ---
CC: Dr. Thomas * CONSULTATION REPORT: DATE OF CONSULT: 01/26/18. PRIMARY CARE PROVIDER: Dr. Thomas. SOURCE OF INFORMATION: History obtained from interview with the patient and review of most recent records. RELIABILITY: Very good. SERVICE REQUESTING CONSULTATION: Emergency Room. REASON FOR CONSULTATION: Lightheadedness, recent history of 2:1 heart block. HISTORY OF PRESENT ILLNESS: This is a 73-year-old female, past medical history includes hypertension, anxiety, hyperlipidemia, [place] [facility] [place] after presenting with chest discomfort and lightheadedness, found to have sinus rhythm with a 2:1 AV block and right bundle branch block on presentation that lasted for approximately 16 minutes on serial EKGs before returning to normal sinus rhythm. During that hospital stay, she underwent a Myoview stress test, as well as transthoracic echocardiogram and Dopplers of her carotid arteries before being discharged home with a plan to follow up with Cardiology for additional monitoring for underlying conduction disease. She has been feeling well since her discharge. However, tonight she was having an argument with her after which they ate dinner and started watching TV on the couch, approximately 15 minutes after her argument with her while they were sitting she developed lightheadedness and sensation like she was spinning that lasted for approximately 3 minutes. Her has a pulse oximeter which she retrieved and checked her heart rate with it, which indicated her heart rate was approximately 120 beats per minute. She indicates at this time she did feel quite anxious and took a Xanax without relief of her tachycardia. They decided to proceed to the hospital because of the increased heart rate. On the way to the hospital, they realized that the fire station meets with other healthcare providers on Mondays. They stopped at the fire department where reportedly the heart rate again was 120, although there is no rhythm monitoring. In the fire station, Arleen was called, transported the patient [place] [facility] [place] [place] She longer feels lightheaded. It lasted for approximately 3 minutes, not associated with nausea, vomiting, diaphoresis, shortness of breath , chest pain. She denies any change in her appetite. No fevers, chills or symptoms, cough, headache or other episodes of lightheadedness, dyspnea on exertion. Repeat EKG in the emergency room indicated sinus rhythm, ventricular rate is 75, again with a right bundle branch block, but no other underlying conduction abnormalities. When I interviewed this patient, she felt back to her usual self. She is able to ambulate and also get out of the bed and use the bathroom unassisted. PAST MEDICAL HISTORY: Includes: 1. Right internal carotid stenosis on recent evaluation during her previous hospital stay, 16 minutes of 2:1 conduction block on most recent hospital stay. 2. Hypertension. 3. Macular degeneration. 4. Tonsillectomy. 5. D and C x2. 6. Right shoulder surgery. 7. Cataract surgery bilaterally. 8. Anxiety for which she still takes Xanax. HOME MEDICATIONS: Include: 1. Naproxen 220 mg q.6 hours as needed. 2. Fish oil 1 capsule twice daily. 3. Alprazolam 0.5 mg at bedtime as needed for anxiety which she apparently takes more frequently than that. 4. PreserVision 1 capsule twice daily. 5. Aspirin 81 mg daily. 6. Atorvastatin 20 mg daily. 7. Amlodipine 2.5 mg daily, recently started 3 days ago. ALLERGIES: To CHLORHEXIDINE, RED FOOD COLOR, and DUST MITES. FAMILY HISTORY: Notable for mother with CAD and hyperlipidemia. Father had CVAs. SOCIAL HISTORY: No tobacco, rare alcohol several times per year. She lives with her . She ambulates unassisted. REVIEW OF SYSTEMS: As per HPI, otherwise all other systems negative. PHYSICAL EXAM: Vital Signs: In the emergency room, blood pressure 188/86 on presentation, decreased to 152/75 without intervention; heart rate of 67 beats per minute; respiratory rate is 16; she is 97% on room air; T-max is 97.4 degrees Fahrenheit. Sitting up in bed, interactive, pleasant, in no apparent distress. Oropharynx is clear. She has moist mucous membranes. Sclerae are anicteric. She has regular rate and rhythm. Lungs are clear to auscultation. Abdomen is soft, nontender, and nondistended. Extremities are warm and well perfused. No clubbing, cyanosis or edema. She is alert and oriented x3. Cranial nerves II through XII are intact. No apparent anxiety, agitation or depression. DIAGNOSTIC STUDIES/LAB DATA: Labs are reviewed and are unremarkable. Troponin is 0.00. EKG notable for normal sinus rhythm, ventricular rate of 75, right bundle branch block. ASSESSMENT AND PLAN: This is a 73-year-old female with recent hospital stay with chest discomfort, status post stress test, EKG with hospital stay notable for 16 minutes of 2:1 conduction block, potentially in the setting of increased vagal tone, relieved after belching, with plan to follow up as an outpatient for further monitoring, now returning with lightheadedness that lasted for 3 minutes with subsequent tachycardia resolved by the time she reached the hospital, potentially in the setting of anxiety. The patient feels back to her baseline. We discussed the care at length. We agree that she needs longer term monitoring. I reaffirmed that coming to the hospital was the correct thing to do for further evaluation and she should do so again if symptoms recur including lightheadedness, nausea, vomiting, chest pain or chest discomfort, fevers, chills, or night sweats, loss of consciousness or near loss of consciousness. She acknowledged understanding. I encouraged her to activate and utilize the EMS if her symptoms were significant to agree that she will return to the emergency room. She acknowledged understanding. At this point, she has already contacted Cardiology and has an appointment next week, which she will keep. There will be no changes in her home medications. Avoidance of stressful situations, although understandably more difficult to achieve than recommend. The patient is in agreement with this plan. We discussed alternatives including monitoring in the hospital overnight with the risks including increased debility and muscle loss, as well as potential medication __ ____ falls and infection. She agrees with this author's recommendation to return home and return to the hospital with any recurrent symptoms. Discussed plan of care with Dr. Castro, who is in agreement. The patient will arrange for transportation home either from friends or a taxi. TIME SPENT: Greater than 60 minutes were spent in the consultation of this patient. [id number]/[facility] #: [id number] [place]
== END 2018-01-26 01:06 | disposition home or self-care (01) ==
LOC: ED 21:08
DX: R55 Syncope and collapse (principal); R00.2 Palpitations; R42 Dizziness and giddiness; I10 Essential (primary) hypertension
CPT/HCPCS: 36415; 80053; 84484; 85025; 93005; 99283

== ENCOUNTER 2018-04-12 12:11 | Inpatient (IN) | payer MEDICARE, BC ==
--- NOTE | 2018-04-12 12:33 | ED ---
Dizziness - HPI Summary HPI Summary: Patient is a 73 y/o female who presents to the ED c/o dizziness. 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 Patient checked her pulse and O2 sat, which were 40 bpm and 80% respectively. She used some of her at home oxygen. Since then her O2 sat has improved however she still notes a low HR. Her HR is normally in the 60s. Patient's dizziness has now resolved. Patient now c/o chest pressure and belching, but denies any palpitations, SOB, N/V/D, abdominal pain, or LE edema. She notes that she feels better after belching. Patient was admitted by Dr. Lim 3 months ago for bradycardia. A cardiac stress test and Holter monitor test were both normal. She takes ASA, Norvasc, Lipitor, and Xanax PRN. - History Of Current Complaint Chief Complaint: EDDysrhythmPalp Stated Complaint: SOB/CHEST PRESSURE Time Seen by Provider: 04/12/18 12:19 Hx Obtained From: Patient Onset/Duration: Resolved Timing: Constant Severity Currently: None Character: Room Spinning, Lightheaded Aggravating Factor(s): Other - low HR Alleviating Factor(s): Other - oxygen Associated Signs And Symptoms: Positive: Chest Pain - pressure. 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 1970 ANAL FISTULA [facility] [place]. 1999 RT SHOULDER [facility]. 2000 D&C [facility] Hx Anesthesia Reactions: Yes - SLOW TO WAKE UP Infectious Disease History: No Infectious Disease History: Denies: Traveled Outside the [place] in Last 30 Days - Family History Known Family History: Positive: Cardiac Disease, Hypertension, Other - stroke - Social History Alcohol Use: Rare Hx Substance Use: No Substance Use Type: Reports: None Hx Tobacco Use: No Smoking Status (MU): Never Smoked Tobacco Review of Systems Positive: Chest Pain - pressure. Negative: Palpitations Negative: Shortness Of Breath Positive: Other - belching. Negative: Abdominal Pain, Vomiting, Diarrhea, Nausea Negative: Edema - LE Neurological: Other - lightheadedness, room-spinning dizziness Positive: Syncope - near All Other Systems Reviewed And Are Negative: Yes Physical Exam - Summary Physical Exam Summary: VITAL SIGNS: Reviewed. GENERAL: Patient is a well-developed and nourished FEMALE who is lying comfortable in the stretcher. Patient is not in any acute respiratory distress. HEAD AND FACE: No signs of trauma. No ecchymosis, hematomas or skull depressions. No sinus tenderness. EYES: PERRLA, EOMI x 2, No injected conjunctiva, no nystagmus. EARS: Hearing grossly intact. Ear canals and tympanic membranes are within normal limits. MOUTH: Oropharynx within normal limits. NECK: Supple, trachea is midline, no adenopathy, no JVD, no carotid bruit, no c- spine tenderness, neck with full ROM. CHEST: Symmetric, no tenderness at palpation LUNGS: Clear to auscultation bilaterally. No wheezing or crackles. CVS: Regular rate and rhythm, S1 and S2 present, no murmurs or gallops appreciated. ABDOMEN: Soft, non-tender. No signs of distention. No rebound no guarding, and no masses palpated. Bowel sounds are normal. EXTREMITIES: FROM in all major joints, no edema, no cyanosis or clubbing. NEURO: Alert and oriented x 3. No acute neurological deficits. Speech is normal and follows commands. SKIN: Dry and warm Triage Information Reviewed: Yes Vital Signs On Initial Exam: Initial Vitals Temp Pulse Resp BP Pulse Ox 98.8 F 45 16 197/72 99 04/12/18 12:13 04/12/18 12:13 04/12/18 12:13 04/12/18 12:13 04/12/18 12:13 Vital Signs Reviewed: Yes Diagnostics - Vital Signs Vital Signs Temp Pulse Resp BP Pulse Ox 04/12/18 12:13 98.8 F 45 16 197/72 99 - Laboratory Result Diagrams: 04/12/18 13:22 04/12/18 13:22 Lab Statement: Any lab studies that have been ordered have been reviewed, and results considered in the medical decision making process. - Radiology CXR Radiology Interpretation Completed By: Radiologist Summary of Radiographic Findings: NO EVIDENCE FOR ACUTE DISEASE. ED physician reviewed radiology report. - EKG 12:57 Cardiac Rate: Bradycardia - 38 bpm EKG Rhythm: Sinus Bradycardia EKG Comparison: Other - AV block is new as compared to EKG on 01/25/18 Summary of EKG Findings: 3rd degree AV block, no ST elevation 14:12 Cardiac Rate: Bradycardia - 43 bpm EKG Rhythm: Sinus Bradycardia Summary of EKG Findings: 2:1 AV block, no ST elevation Re-Evaluation - Re-Evaluation First Eval Re-Evaluation Time: 13:49 Change: Worse Comment: Pt is now lightheaded and nauseated. Second Eval Re-Evaluation Time: 14:00 Change: Unchanged Comment: Pt continues to have chest pressure. Third Eval Change: Improved Comment: Pt is comfortable and her pain has subsided. Dizzy Course/Dx - Course Assessment/Plan: This patient is a 73-year-old female who presents to the emergency department with her reporting that the patient is having dizziness and feeling that she is going to pass out. The patient checked her O2 sat and heart rate at home and he was found to be 82% of oxygen saturation and heart rate and the 40s. Test results without any significant abnormality except for glucose level of 101. BNP is 110. Chest x-ray impression no evidence for acute disease. EKG shows a bradycardia with a 2-1 block. I discussed the case with Dr. Marcus and he agrees with 2-1 block. He will consult for the patient. He recommends admission to the hospitalist. I discussed the case with Dr. Robertson from the hospitalist services was accepted the patient for admission. - Diagnoses Provider Diagnoses: AV block, Symptomatic bradycardia, Dizziness - Provider Notifications Discussed Care Of Patient With: Travis Marcus Time Discussed With Above Provider: 13:13 Instructed by Provider To: Other - Dr. Marcus is unsure of her diagnosis. Differentials include 2:1 AV block VS. atrial bigeminy with blocked PACs. He suggests admission. At 14:09 Dr. Robertson accepts for admission. - Critical Care Time Critical Care Time: 30-74 min Discharge - Sign-Out/Discharge Documenting (check all that apply): Patient Departure - Admit Patient Received Moderate/Deep Sedation with Procedure: No - Discharge Plan Condition: Improved Disposition: ADMITTED TO [facility] - Billing Disposition and Condition Condition: IMPROVED Disposition: Admitted to [facility] - Attestation Statements Document Initiated by Lorrieibe: Yes Documenting Scribe: Monalisa Aviles Provider For Whom Mollye is Documenting (Include Credential): Carroll Mann MD Scribe Attestation: Monalisa Eldridge, scribed for Carroll Mann MD on 04/12/18 at 2049. Scribe Documentation Reviewed: Yes Provider Attestation: The documentation as recorded by the scribeMonalisa accurately reflects the service I personally performed and the decisions made by me, Carroll Mann MD Status of Scribe Document: Viewed
--- OUTSIDE RECORDS SUMMARY | 2018-04-12 13:22 | XMS REPORT | Continuity of Care Document ---
:1945 External Reference #:[id number] Author Name Mira Mccabe Care Team Providers Name Role Phone Steve Thomas MD Primary Care Physician Unavailable Payers Type Date Identification Numbers Payment Provider Subscriber Policy Number: [id number] Medicare Britt Trujillo PayID: [id number] [address] [place] [address] Policy Number: [id number] [facility] Britt Trujillo Group Name: [id number] [address] PayID: [id number] [place] [address] Advance Directives Description No Information Available Problems Date Description Provider Status Onset: 12/01/2014 Localized, primary osteoarthritis Shanita Call M.D. Active Onset: 05/07/2016 Enthesopathy of hip region Shanita Call M.D. Active Family History Date Family Member(s) Problem(s) Comments General Heart Disease General Cancer Father due to at 80 yo of () CVA's, htn Mother due to at 86 of CHF () Siblings 3 1 brother,- of suicide r/t depression, alcoholism; 2 sisters-1 sister with IBS, out of contact with other sister Social History Type Date Description Comments Sex Unknown Marital Status Lives With Occupation Retired ETOH Use Rarely consumes alcohol Tobacco Use Start: Unknown Patient has never smoked Smoking Status Reviewed: 03/15/18 Patient has never smoked Exercise Exercises sporadically walks sporadically Type/Frequency Allergies, Adverse Reactions, Alerts Date Description Reaction Status Severity Comments 01/27/2018 FD&C Red 40 Shea Palpitations Active Moderate 01/27/2018 Chlorhexidine RAsh Active Severe 12/01/2014 NKDA Inactive Medications Medication Date Status Form Strength Qnty SIG Indications Ordering Provider Crestor 03/15/ Active Tablets 5mg 30tabs 1/2 tab E78.5 Olinda S. 2019 by mouth Foster, every day N.P. Amlodipine 03/08/ Active Tablets 2.5mg 90tabs 1 by I10 Booker Besylate 2019 mouth F. Mauser, every day M.D. Xanax 01/23/ Active Tablets 0.5mg at Unknown 2018 bedtime daily by mouth as needed Aspirin Adult 01/23/ Active Tablets DR 81mg 90tabs 1 by Booker Low Dose 2018 mouth F. Mauser, every day M.D. Preservision 01/23/ Active Capsules Areds 2 1 cap by Unknown Areds 2 + Multi 2018 mouth Vitamin twice daily Fish Oil / Active Capsules 1200mg 1 by Unknown 0000 mouth twice a day Atorvastatin 02/11/ Hx Tablets 20mg 90tabs take 1 Booker Calcium 2019 - tablet at F. Mauser, 02/28/ bedtime M.D. 2019 Amlodipine 01/23/ Hx Tablets 5mg 45tabs /2 tab Booker Besylate 2018 - by mouth F. Mauser, 02/26/ every day M.D. 2018 Naproxen 05/07/ Hx Tablets 500mg 30tabs 1 tablet M25.552 Shanita 2016 - with food Jakub, 01/23/ by mouth M.D. 2018 twice a day Naproxen 12/01/ Hx Tablets 500mg 90tabs 1 po bid M25.562 Shanita 2014 - prn pain Jakub, 03/08/ M.D. 2019 Maxzide-25 / Hx Tablets 37.5-25mg 1 by Unknown 0000 - mouth 01/23/ every day 2018 Immunizations Description No Information Available Vital Signs Date Vital Result Comment 03/15/2018 10:50am Height 65 inches 5'5" Weight 177.00 lb w/o shoes Heart Rate 68 /min BP Systolic Sitting 165 mmHg Lue reg cuff BP Diastolic Sitting 85 mmHg Lue reg cuff BP Systolic Standing 160 mmHg Lue reg cuff BP Diastolic Standing 80 mmHg Lue reg cuff Respiratory Rate 16 /min O2 % BldC Oximetry 98 % BMI (Body Mass Index) 29.5 kg/m2 03/08/2018 11:02am Height 65 inches 5'5" Weight 181.38 lb with shoes Heart Rate 78 /min BP Systolic Standing 152 mmHg BP Diastolic Standing 88 mmHg BMI (Body Mass Index) 30.2 kg/m2 Ejection Fraction 55-60% 01/22/18 01/27/2018 9:49am Height 65 inches 5'5" Weight 183.12 lb With Shoes Heart Rate 72 /min BP Systolic 190 mmHg Lue BP Diastolic 92 mmHg Lue BMI (Body Mass Index) 30.5 kg/m2 Ejection Fraction 55-60% 01/22/18 Echocardiogram 06/09/2016 1:06pm Height 65 inches 5'5" Weight 173.00 lb Heart Rate 64 /min BP Systolic 162 mmHg BP Diastolic 73 mmHg Body Temperature 97.9 F Pain Level 3 BMI (Body Mass Index) 28.8 kg/m2 05/07/2016 10:37am Height 64 inches 5'4" Weight 178.00 lb Heart Rate 64 /min BP Systolic Sitting 142 mmHg BP Diastolic Sitting 78 mmHg Respiratory Rate 16 /min Pain Level 5 BMI (Body Mass Index) 30.6 kg/m2 12/01/2014 8:07am Height 64 inches 5'4" Weight 178.00 lb Pain Level 3 BMI (Body Mass Index) 30.6 kg/m2 Results Test Date Facility Test Result H/L Range Note Lipid Panel - JFM 03/15/2018 [facility] Creatine <pending> [address] Kinase(CK) [place] [address] [phone] Laboratory test 01/22/2018 [facility] Troponin-I 0.03 ng/mL < 0.04 [address] (TnI) [place] [address] [phone] 1 Troponin-I testing on Plasma Separator Tubes (PST) has a known false positive rate of 0.20-0.40%. All positive troponins reflex immediate secondary confirmatory testing. Procedures Date Code Description Status 03/08/2018 38085 EKG Tracing & Interpretation Completed 01/27/2018 26979 EKG Tracing & Interpretation Completed 01/22/2018 09242 ECHO Transthorasic Realtime 2D W Doppler & Color Flow Hosp Completed 01/22/2018 87033 Treadmill Interp/Report Only Completed 01/22/2018 48966 Stress Test Supervsn W/Out I/R Completed Encounters Type Date Location Provider Dx Diagnosis Office Visit 03/11/2018 [facility] Dermatology Chito Gilliland MD L57.0 Actinic keratosis 8:20a L82.1 Other seborrheic keratosis L81.4 Other melanin hyperpigmentation D18.01 Hemangioma of skin and subcutaneous tissue Office Visit 03/08/2018 11:20a [facility] Booker Arias I10 Essential (primary) Oscar Lim hypertension I44.1 Atrioventricular block, second degree R00.2 Palpitations R42 Dizziness and giddiness E78.5 Hyperlipidemia, unspecified I65.21 Occlusion and stenosis of right carotid artery I45.10 Unspecified right bundle-branch block R94.31 Abnormal electrocardiogram [ECG] [EKG] Office Visit 01/27/2018 10:00a [facility] Booker Arias R42 Dizziness and Oscar Lim giddiness I10 Essential (primary) hypertension I44.1 Atrioventricular block, second degree R00.2 Palpitations Office Visit 01/26/2018 10:07a [facility] Gio R42 Dizziness and Assoc,rome Velez M.D. giddiness Hospitalists I10 Essential (primary) hypertension E78.5 Hyperlipidemia, unspecified Office Visit 01/23/2018 9:35a [facility] Monika Mckeon, R07.89 Other chest Assocrome M.D. pain Hospitalists I10 Essential (primary) hypertension I65.21 Occlusion and stenosis of right carotid artery Office Visit 01/22/2018 3:21p [facility] Booker Arias R07.89 Other chest Oscar Lim pain R11.0 Nausea R42 Dizziness and giddiness R00.1 Bradycardia, unspecified I25.10 Athscl heart disease of [place] coronary artery w/o ang pctrs R94.31 Abnormal electrocardiogram [ECG] [EKG] I10 Essential (primary) hypertension Office Visit 01/22/2018 [facility] Graciela R07.9 Chest pain, 9:35a Assoc,rome Kim NP unspecified Hospitalists I10 Essential (primary) hypertension Office Visit 06/09/2016 1:00p [facility] Shanita Call, M25.552 Pain in left Of C.M.A. M.D. hip M25.551 Pain in right hip M70.71 Other bursitis of hip, right hip M70.72 Other bursitis of hip, left hip Office Visit 05/07/2016 10:30a [facility] Shanita Call, M25.552 Pain in left Of C.M.A. M.D. hip M25.551 Pain in right hip M70.71 Other bursitis of hip, right hip M70.72 Other bursitis of hip, left hip Office Visit 12/01/2014 8:00a [facility] Shanita Call, M25.562 Pain in left Of C.M.A. M.D. knee M17.12 Unilateral primary osteoarthritis, left knee Plan of Treatment Future Appointment(s):05/11/2018 11:20 am - Booker Lim M.D. at [facility]12/01/2014 - Shanita Call M.D.M25.562 Pain in left kneeNew Medication :Naproxen 500 mg - 1 po bid prn painFollow up:Follow up: 4 ckuklX37.12 Unilateral primary osteoarthritis, left knee
[2018-04-12 13:33] LABS: ABS Basophils 0.1 10^3/ul (0-0.2); ABS Eosinophils 0.1 10^3/ul (0-0.6); ABS Lymphocytes 1.4 10^3/ul (1.0-4.8); ABS Monocytes 0.6 10^3/ul (0-0.8); ABS Neutrophils 5.7 10^3/ul (1.5-7.7); ABS Nucleated RBC 0 10^3/ul; Eosinophil % 1.1 %; Hematocrit 44 % (35-47); Lymphocyte % 17.6 %; Mean Corpuscular HGB Conc 34 g/dl (31-36); Mean Corpuscular Hemoglobin 29 pg (27-31); Mean Corpuscular Volume 86 fL (80-97); Mean Platelet Volume 8.2 fL (7.4-10.4); Nucleated Red Blood Cells % 0; Platelet Count 223 10^3/ul (150-450); Red Blood Count 5.19 10^6/ul (4.00-5.40); Red Cell Distribution Width 16 % (10.5-15); White Blood Count 7.9 10^3/ul (3.5-10.8)
[2018-04-12 13:56] LABS: Albumin 4.3 g/dL (3.2-5.2); Albumin/Globulin Ratio 1.5 (1-3); Calcium 9.2 mg/dL (8.6-10.3); EGFR African American 70.4 (>60); EGFR Non-African American 58.2 (>60); Globulin 2.9 g/dL (2-4); Magnesium 2.2 mg/dL (1.9-2.7); Total Bilirubin 0.6 mg/dL (0.2-1.0); Total Protein 7.2 g/dL (6.4-8.9)
[2018-04-12 14:00] LABS: CKMB ng/mL 2.3 ng/mL (0.6-6.3)
[2018-04-12 14:40] LABS: TSH (Thyroid Stimulating Horm) 1.57 mcIU/mL (0.34-5.60)
[2018-04-12] MEDS ORDERED: hydrALAZINE IV* 20 MG/ML VIAL IV SLOW PU PRN (14:59)
[2018-04-12] MEDS ORDERED: Lisinopril TAB* 10 MG PO ONE (15:01)
[2018-04-12 15:47] LABS: Urine Appearance Clear; Urine Bilirubin Negative (Negative); Urine Blood Negative (Negative); Urine Color Colorless; Urine Glucose Negative (Negative); Urine Ketones Negative (Negative); Urine Nitrite Negative (Negative); Urine Protein Negative (Negative); Urine Specific Gravity 1.002 (1.010-1.030); Urine Urobilinogen Negative (Negative)
--- NOTE | 2018-04-12 16:55 | HP ---
HISTORY AND PHYSICAL: DATE OF ADMISSION: 04/12/18 ADMITTING PROVIDER: Suman Robertson MD PRIMARY CARE PROVIDER: Dr. Thomas. OUTPATIENT ROLLER PRINT TENDER: Dr. Lim. CHIEF COMPLAINT: Lightheadedness and bradycardia to 40s observed on outpatient monitor. HISTORY OF PRESENT ILLNESS: Britt Trujillo is a 73-year-old with past medical history of hypertension, anxiety, intermittent second-degree heart block, hyperlipidemia. She was admitted 01/22/18 to 01/23/18 with bradycardia, had been reduced on her amlodipine dose, then had a 30 day outpatient Holter monitor which did not show any bradycardia or heart block. The says that a couple days after that discharge, she was tachycardic. She has now resumed back her amlodipine - first at 2.5 mg daily and then 5 mg daily. She today was in her usual state of health when around 11 a.m. she was lightheaded with walking and had to hold onto the side of the rosa. She checked her heart rate with her home monitor and it was in the 40s, and never more than 45. Her pulse ox showed that she was satting 80%, though she did not have any shortness of breath. She [place] [facility] where her EKG showed a 2:1 heart block, with HR in the 40s. Dr. Marcus was consulted by the emergency room and he recommended admission to the hospital with consideration for a possible pacemaker placement. She denies any chest pain. She did have some chest pressure that was of 30 seconds duration that quickly resolved with burping and this happened a couple times. She does not work out. She is a never smoker. BNP was 110. TSH is pending. PAST MEDICAL HISTORY: Hypertension, intermittent second-degree heart block, anxiety, hyperlipidemia. MEDICATIONS: Include: 1. Amlodipine 5 mg daily. 2. Aspirin 81 mg daily. 3. Xanax 0.5 mg p.o. at bedtime p.r.n. 4. Atorvastatin, she is actually is prescribed 20 mg, but is only taking 10 mg daily because she was concerned about an episode of altered mental status a few weeks ago. ALLERGIES: RED FOOD COLOR, DUST MITES, CHLORHEXIDINE. SOCIAL HISTORY: The patient is a never smoker, never drinker. No drug use. 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 Medical surrogate is her , Sgaar Trujillo. REVIEW OF SYSTEMS: A complete 14-point review of systems negative except as per HPI. PHYSICAL EXAMINATION GENERAL APPEARANCE: No acute distress. VITAL SIGNS: Temperature 98.8; pulse rate 45; respiratory rate 16; satting 99% on room air; blood pressure 197/72, max of 218/70. HEENT: Normocephalic, atraumatic. Pupils are equal, round, and reactive to light. Extraocular motions intact. No scleral icterus. NECK: Supple. No cervical lymphadenopathy. LUNGS: Clear to auscultation bilaterally with no wheezing, rales, or rhonchi. CARDIAC: Bradycardic. No murmurs, rubs, or gallops. ABDOMEN: Soft, nontender, nondistended. EXTREMITIES: Warm and well perfused. No peripheral edema. NEUROLOGIC: Cranial nerves II through XII intact. Ditch Repairer strength 5/5. Biceps 5/ 5. Hip, dorsiflexion and plantarflexion all 5/5. DIAGNOSTIC STUDIES/LAB DATA: White count 7.9, hemoglobin 15.0, hematocrit 44, platelets 223. Sodium 138, potassium 4.0, carbon dioxide 26, BUN 16, creatinine 0.94, lactic acid 0.7, glucose 101. Total bili 0.6. Magnesium 2.2. BNP 110, troponin 0.00. AST 22, ALT 18, alk phos 53. CK-MB 2.3. Albumin 4.3. TSH pending. Imaging: Chest x-ray: No acute process. EKG showed predominant 2:1 AV block, right bundle-branch block. This was repeated on multiple EKGs. ASSESSMENT AND PLAN: Britt Trujillo is a 73-year-old female with past medical history of intermittent atrioventricular block, hypertension, hyperlipidemia, anxiety, presenting with symptomatic bradycardia with again 2:1 atrioventricular block. There may be a possibility by history (although not confirmed objectively on Holter) for tachybrady syndrome. I appreciate Dr. Marcus 's recommendations. We will admit her to telemetry service. Hold her amlodipine given AV blockade contraindicated. N.p.o. at midnight for possible pacemaker placement. She is hypertensive at 200s/70s. Gave her hydralazine prn and start lisinopril 10 mg po now. For her anxiety, continue her Xanax p.r.n. She is a full code. Medical surrogate is , Sagar Trujillo. She can do a heart healthy diet. [id number]/[facility] #: [id number] [place]
[2018-04-12] MEDS: ALPRAZolam TAB* 0.5 MG PO PRN (18:43)
--- NOTE | 2018-04-12 18:50 | CONS ---
CC: Dr. Booker Lim; Dr. Steve Thomas * CARDIOLOGY CONSULTATION: DATE OF CONSULT: 04/12/18 INDICATION FOR CONSULTATION: Second-degree AV block. HISTORY OF PRESENT ILLNESS: The patient is a 73-year-old female with a history of hypertension, hypercholesterolemia, who was admitted to the hospital in January 2018 with episodes of nausea. During her episodes of nausea, she had a 2:1 heart block, but when her nausea resolved, her heart block resolved. The patient was discharged from the hospital, she followed with Dr. Lim. A 30- day event monitor showed no arrhythmias. This morning, the patient was at home. She felt dizzy when she was walking around her house. She had to grab on to things to steady herself. She sat down. She still felt dizzy. She put a pulse ox on her finger, which read a heart rate of 40, oxygenation of 90%. She decided to go to the emergency room. On arrival to the emergency room, her EKG showed 2:1 heart block with a sinus rate of 80 and a heart rate of 40. The patient is to be admitted to the hospital. The patient was admitted to the hospital in January. At that time, she had a stress test, which showed no definitive areas of ischemia. She had normal LV function. Her echocardiogram at that time was normal. PAST SURGICAL HISTORY: Consistent with anal fistula and bone spur removal. OUTPATIENT MEDICATIONS: 1. Amlodipine 2.5 mg a day. 2. Aspirin 81 mg a day. 3. Fish oil tablets. ALLERGIES: RED DYE, CHLORHEXIDINE. FAMILY HISTORY: Her brother committed suicide 5 years ago, history of depression. Mother had a myocardial infarction at age of 80. SOCIAL HISTORY: She is retired. She is . She has no children. REVIEW OF SYSTEMS: Negative for fevers and chills. Negative for changes in bowel or bladder habits. Negative for change in weight. Other 12-point review is unremarkable. PHYSICAL EXAM: Height is 5 feet 5 inches, weight is 173 pounds. Blood pressure 187/68, heart rate is 45, oxygen saturation is 100% on room air, respiratory rate is 21, temperature is 98.8. Sclerae anicteric. Oropharynx is pink without erythema. Carotids are 2+ without bruits. JVD is normal. Thyroid is normal. Cardiac Exam: S1, S2 without any murmurs, rubs, or gallops. Lungs are clear to auscultation bilaterally. There is no dullness to percussion. Abdomen is soft, nontender, nondistended with normoactive bowel sounds. Extremities show no edema. She has 2+ pulses throughout. The patient is awake, alert and oriented. She moves all 4 extremities equally. DIAGNOSTIC STUDIES/LAB DATA: CBC within normal limits. Chemistry is within normal limits. AST and ALT are normal. Troponin is 0. TSH 1.5. IMPRESSION: This is a 73-year-old female who is admitted to the hospital today with an episode of lightheadedness. In the emergency room, she is in 2:1 heart block with a heart rate of 40 beats per minute and a sinus rate of 80 beats per minute. She had a similar episode back in January. The patient's cardiac workup in January was unremarkable with a normal echocardiogram, normal stress test, and noncritical carotid disease. For now, my recommendation the patient undergo dual-chamber pacemaker implantation. The risks and benefits of this were described in great detail. Alternatives were discussed. The patient is willing to proceed. The patient will have pacemaker implanted tomorrow. She will follow up with Dr. Lim as an outpatient. [id number]/[facility] #: [id number] [place]
[2018-04-12] MEDS: Atorvastatin* 20 MG TAB PO SCH (20:56)
[2018-04-12] MEDS ORDERED: NS 0.9% 1000 ML** 1,000 ML IV SCH (23:00)
[2018-04-13 05:48] LABS: INR 1.04 (0.77-1.02)
[2018-04-13 05:59] LABS: BUN/Creatinine Ratio 12.4 (8-20); Calcium 8.5 mg/dL (8.6-10.3); Magnesium 2.1 mg/dL (1.9-2.7); Potassium 3.7 mmol/L (3.5-5.0)
[2018-04-13] MEDS: Lisinopril TAB* 10 MG PO SCH (07:44)
[2018-04-13] MEDS: Aspirin 81 mg CHEW TAB* 81 MG TAB.CHEW PO SCH (07:44)
[2018-04-13] MEDS ORDERED: Diazepam TAB(*) 5 MG PO ONE (08:00)
[2018-04-13] MEDS ORDERED: ceFAZolin 1 GM/10 ML flush(*) SYRINGE for pocket flush (cardiology) FLUSH ONE (08:00)
[2018-04-13] MEDS ORDERED: ceFAZolin 2 GM PREMIX in ORs 2 GM/50 ML BAG IVPB ONE (08:00)
[2018-04-13] MEDS ORDERED: Lidocaine 1% INJ* 10 MG/ML 30 ML SDV ONE (08:14)
[2018-04-13] MEDS ORDERED: Midazolam* 1 MG/ML 5 ML VIAL (5 MG) ONE (08:17)
[2018-04-13] MEDS ORDERED: fentaNYL* 50 MCG/ML 2 ML VIAL (100 MCG VIAL) ONE (08:17)
[2018-04-13] MEDS ORDERED: Flumazenil* 0.1 MG/ML 5 ML MDV ONE (08:18)
[2018-04-13] MEDS ORDERED: Naloxone* 0.4 MG/ML 1 ML VIAL ONE (08:18)
[2018-04-13] MEDS ORDERED: oxyCODONE/Acetamin 5/325 MG* TAB PO PRN (09:29)
--- NOTE | 2018-04-13 14:47 | OP ---
CC: Dr. Booker Lim * DATE OF OPERATION: 04/13/18 - ROOM #450 DATE OF : 43 SURGEON: Travis Marcus MD ANESTHESIA: Local anesthesia with conscious sedation. PRE-OP DIAGNOSES: 1. Second-degree heart block, type 1. 2. Dizziness. 3. Fatigue. POST-OP DIAGNOSES: 1. Second-degree heart block, type 1. 2. Dizziness. 3. Fatigue. OPERATIVE PROCEDURE: Dual chamber pacemaker implantation. ESTIMATED BLOOD LOSS: Nil. COMPLICATIONS: None. INDICATIONS: The patient is a 73-year-old female with a history of hypertension , who was admitted to the hospital in February with nausea. She was at that time noticed to have episodes of second-degree heart block with her nausea. The patient was followed with Dr. Lim with the idea that any other arrhythmias and heart block, the patient will get pacemaker. The patient was admitted to the hospital yesterday with fatigue. She was found to be in 2:1 heart block. Permanent pacemaker was recommended. DESCRIPTION OF PROCEDURE: The patient was brought to the cardiac catheterization lab in a fasting state. Informed consent had been obtained prior to the procedure. All labs had been reviewed. The patient was placed supine on the procedure table. Her left deltopectoral area was cleaned and draped in the usual fashion. 1% lidocaine was used for local anesthesia. The axillary vein was entered by Seldinger technique using ultrasound guidance and a guidewire was placed. A second guidewire was placed in the same technique. A 3.5 cm incision was made in the pectoral area. Blunt dissection was carried down to the pectoral fascia and a small pocket was fashioned for the pacemaker. Over the guidewire, a 7-Nepali sheath introducer was placed through which a right ventricular lead was advanced to the high septum. The right ventricular lead is a Medtronic model 5076, serial #[id number], it had an R-wave sensitivity of 3.6, impedance 1319 ohms, threshold 1.2 volts at 0.5 milliseconds. The ventricular lead was sutured to the pectoral fascia. Over the second guidewire, a 7-Nepali sheath introducer was placed through which a right atrial lead was advanced to the high right atrium. The right atrial lead is a Medtronic model 5076, serial #[id number]. The right atrial lead had a P- wave sensitivity of 2.5, impedance 803 ohms, threshold 0.3 volts at 0.5 milliseconds. The atrial lead was sutured to the pectoral fascia. The pocket was flushed with normal saline. A generator was attached appropriately to the atrioventricular lead. The generator is a Blend model W1DR01, serial # [id number]. The device was placed in the pocket. The surgical incision was closed in 3 layers. The patient was returned to holding area in stable condition. [id number]/[facility] #: [id number] [facility] CENTERY[facility]
[2018-04-13] MEDS: Acetaminophen TAB* 325 MG PO PRN ×2 (15:16→20:19)
[2018-04-13] MEDS: ceFAZolin VIAL(*) 1 GM in NS 0.9% 50 ML* 50 ML IVPB SCH (16:39)
--- NOTE | 2018-04-13 19:16 | PN ---
Subjective Date of Service: 04/13/18 Interval History: s/p PPM with Dr. Marcus this AM. Tele showed mostly 30s overnight. Paced in 70s now. pain controlled denies SOB, chest pain, lightheadedness, abdominal pain Objective Active Medications: Acetaminophen (Tylenol Tab*) 650 mg PO Q4H PRN PRN Reason: FEVER/PAIN Last Admin: 04/13/18 15:16 Dose: 650 mg Alprazolam (Xanax Tab*) 0.5 mg PO BEDTIME PRN PRN Reason: ANXIETY Last Admin: 04/12/18 18:43 Dose: 0.5 mg Aspirin (Aspirin 81 Mg Chew Tab*) 81 mg PO DAILY [facility] Last Admin: 04/13/18 07:44 Dose: 81 mg Atorvastatin Calcium (Lipitor*) 10 mg PO 2100 [facility] Last Admin: 04/12/18 20:56 Dose: Not Given Hydralazine HCl (Apresoline Iv*) 10 mg IV SLOW PU Q2H PRN PRN Reason: SYSTOLIC BP GREATER THAN: Sodium Chloride (Ns 0.9% 1000 Ml) 1,000 mls @ 75 mls/hr IV PER RATE [facility] Last Admin: 04/12/18 23:12 Dose: 75 mls/hr Cefazolin Sodium 1 gm/ Sodium (Chloride) 50 mls @ 200 mls/hr IVPB Q8H [facility] Stop: 04/14/18 08:14 Last Admin: 04/13/18 16:39 Dose: 200 mls/hr Lisinopril (Prinivil Tab*) 10 mg PO DAILY [facility] Last Admin: 04/13/18 07:44 Dose: 10 mg Oxycodone/Acetaminophen (Percocet 5/325 Tab*) 1 tab PO Q4H PRN PRN Reason: PAIN Vital Signs - 8 hr 04/13/18 04/13/18 04/13/18 11:45 11:59 12:50 Temperature 97.9 F 97.3 F Pulse Rate 77 73 Respiratory 18 18 Rate Blood Pressure 159/72 141/63 (mmHg) O2 Sat by Pulse 99 95 97 Oximetry 04/13/18 04/13/18 04/13/18 12:59 13:50 15:27 Temperature 97.2 F 97.6 F Pulse Rate 71 71 Respiratory 18 16 Rate Blood Pressure 132/61 145/64 (mmHg) O2 Sat by Pulse 95 98 100 Oximetry Oxygen Devices in Use Now: None Appearance: NAD Eyes: No Scleral Icterus Ears/Nose/Mouth/Throat: NL Teeth, Lips, Gums Neck: NL Appearance and Movements; NL JVP, Trachea Midline Respiratory: Symmetrical Chest Expansion and Respiratory Effort, Clear to Auscultation Cardiovascular: NL Sounds; No Murmurs; No JVD, RRR, - - PPM left upper chest w/ o e/o hematoma, left arm in sling. Abdominal: NL Sounds; No Tenderness; No Distention, No Hepatosplenomegaly Extremities: No Edema Skin: No Rash or Ulcers Neurological: Alert and Oriented x 3, NL Sensation Lines/Tubes/Other Access: Clean, Dry and Intact Arterial Line Nutrition: Taking PO's Result Diagrams: 04/12/18 13:22 04/13/18 05:35 Additional Lab and Data: Laboratory Results - last 24 hr 04/13/18 04/13/18 05:35 05:35 INR (Anticoag Therapy) 1.04 H Sodium 141 Potassium 3.7 Chloride 110 Carbon Dioxide 26 Anion Gap 5 BUN 11 Creatinine 0.89 Est GFR ( Amer) 75.0 Est GFR (Non-Af Amer) 62.0 BUN/Creatinine Ratio 12.4 Glucose 98 Calcium 8.5 L Magnesium 2.1 Assess/Plan/Problems-Billing Assessment: 73 yo female PMH intermittent 2:1 AV block, HTN, HLD, anxiety presenting with symptomatic bradycardia 2:1. Now s/p PPM 3/5 - Patient Problems (1) AV block, 2nd degree Current Visit: Yes Status: Acute Code(s): I44.1 - ATRIOVENTRICULAR BLOCK, SECOND DEGREE SNOMED Code(s): 096200886 Comment: causing symptomatic bradycardia. no s/p PPM 3/[address] Marcus. observed overnight on tele. likely d/c in AM (2) HTN (hypertension) Current Visit: Yes Status: Acute Code(s): I10 - ESSENTIAL (PRIMARY) HYPERTENSION SNOMED Code(s): 50609241 Comment: had been on amlodipine 5mg at home, currently new lisinopril 10mg in setting of bradycardia. hydralazine prn (3) HLD (hyperlipidemia) Current Visit: Yes Status: Acute Code(s): E78.5 - HYPERLIPIDEMIA, UNSPECIFIED SNOMED Code(s): 61056413 Comment: continue statin. (4) Anxiety Current Visit: Yes Status: Acute Code(s): F41.9 - ANXIETY DISORDER, UNSPECIFIED SNOMED Code(s): 13985098 Comment: continue xanax Status and Disposition: medicine inpatient. likely d/c in AM.
[2018-04-13] MEDS: Atorvastatin* 20 MG TAB PO SCH (20:18)
[2018-04-13] MEDS: ALPRAZolam TAB* 0.5 MG PO PRN (20:20)
[2018-04-14] MEDS: ceFAZolin VIAL(*) 1 GM in NS 0.9% 50 ML* 50 ML IVPB SCH ×2 (00:34→09:32)
[2018-04-14 07:41] LABS: Calcium 8.7 mg/dL (8.6-10.3); EGFR African American 82.5 (>60); EGFR Non-African American 68.1 (>60); Magnesium 2.1 mg/dL (1.9-2.7); Potassium 4.3 mmol/L (3.5-5.0)
[2018-04-14] MEDS: Aspirin 81 mg CHEW TAB* 81 MG TAB.CHEW PO SCH (09:32)
[2018-04-14] MEDS: ALPRAZolam TAB* 0.5 MG PO PRN (09:32)
[2018-04-14] MEDS: Lisinopril TAB* 10 MG PO SCH (09:32)
--- NOTE | 2018-04-14 10:00 | PN ---
<Rebeka Davison - Last Filed: 04/14/18 10:24> Subjective Date of Service: 04/14/18 - s/p PPM implant 04/13/2018 due to high degree AVB Interval History: No events last night. Patient offers no complaints, denies chest pain, sob, dizziness, fever or chills. She is sitting on edge of bed with at bedside wearing arm sling. Medications Active Medications: Acetaminophen (Tylenol Tab*) 650 mg PO Q4H PRN PRN Reason: FEVER/PAIN Last Admin: 04/13/18 20:19 Dose: 650 mg Alprazolam (Xanax Tab*) 0.5 mg PO BEDTIME PRN PRN Reason: ANXIETY Last Admin: 04/14/18 09:32 Dose: 0.5 mg Aspirin (Aspirin 81 Mg Chew Tab*) 81 mg PO DAILY [facility] Last Admin: 04/14/18 09:32 Dose: 81 mg Atorvastatin Calcium (Lipitor*) 10 mg PO 2100 [facility] Last Admin: 04/13/18 20:18 Dose: 10 mg Hydralazine HCl (Apresoline Iv*) 10 mg IV SLOW PU Q2H PRN PRN Reason: SYSTOLIC BP GREATER THAN: Lisinopril (Prinivil Tab*) 10 mg PO DAILY [facility] Last Admin: 04/14/18 09:32 Dose: 10 mg Oxycodone/Acetaminophen (Percocet 5/325 Tab*) 1 tab PO Q4H PRN PRN Reason: PAIN Objective Vital Signs: Temp Pulse Resp BP Pulse Ox 97.5 F 84 16 171/95 100 04/14/18 07:30 04/14/18 07:30 04/14/18 09:32 04/14/18 07:30 04/14/18 07:30 Oxygen Devices in Use Now: None Appearance: A+O x3 cooperative with exam, NAD Eyes: No Scleral Icterus Ears/Nose/Mouth/Throat: NL Teeth, Lips, Gums, Mucous Membranes Moist Neck: NL Appearance and Movements; NL JVP, Trachea Midline Respiratory: Symmetrical Chest Expansion and Respiratory Effort, Clear to Auscultation Cardiovascular: NL Sounds; No Murmurs; No JVD - 2/6 diastolic murmur ausculatated at left sternal border., No Edema, - - Left anterior chest device sit inspected, no pocket hematoma or erosion. Extremities: No Edema Skin: No Rash or Ulcers Neurological: Alert and Oriented x 3 Lines/Tubes/Other Access: Clean, Dry and Intact Peripheral IV Laboratory Results: 04/12/18 13:22 04/14/18 06:36 INR (Anticoag Therapy) 1.04 (0.77-1.02) H 04/13/18 05:35 Total Bilirubin 0.60 mg/dL (0.2-1.0) 04/12/18 13:22 AST 22 U/L (13-39) 04/12/18 13:22 ALT 18 U/L (7-52) 04/12/18 13:22 Alkaline Phosphatase 53 U/L (34-104) 04/12/18 13:22 CK-MB (CK-2) 2.3 ng/mL (0.6-6.3) 04/12/18 13:22 B-Natriuretic Peptide 110 pg/mL (<=100) H 04/12/18 13:22 Total Protein 7.2 g/dL (6.4-8.9) 04/12/18 13:22 Albumin 4.3 g/dL (3.2-5.2) 04/12/18 13:22 Globulin 2.9 g/dL (2-4) 04/12/18 13:22 Albumin/Globulin Ratio 1.5 (1-3) 04/12/18 13:22 TSH 1.57 mcIU/mL (0.34-5.60) 04/12/18 13:22 04/12/18 13:22 Troponin I 0.00 Laboratory Results - last 24 hr 04/14/18 06:36 Sodium 137 Potassium 4.3 Chloride 109 Carbon Dioxide 27 Anion Gap 1 L BUN 18 Creatinine 0.82 Est GFR ( Amer) 82.5 Est GFR (Non-Af Amer) 68.1 BUN/Creatinine Ratio 22.0 H Glucose 91 Calcium 8.7 Magnesium 2.1 EKG Data: Telemetry reviewed patient was paced last night this morning after device settings changed her intrinsic rhythm was noted. Currently she is NSR rate 70's she did have ventricular tigeminy this morning not symptomatic Assessment/Plan #1 Symptomatic High degree AVB s/p DC PPM 04/13/2018with Dr. Marcus. Device site inspected no evidence of hematoma. She is doing well. CXR reviewed by Dr. Fierro lead is placed in septum. Device was interrogated today, No VT, AF. RSR with intermittent AVB. impedance RA 513, RV 779. RA sensing 2.8, RV 11.4. RV threshold 0.75 @ 0.4 AP 30.9% and RV 99.9%. AV delayed was extended to 250ms to allow intrinsic AV conduction. Prescription for Keflex 250mg PO TID x3 days send into patient's pharmacy. she is to f/u with Olinda Garsia [employer] on 04/22/2018 at 10:45 am for staple removal and wound inspection. No lifting left arm over head x8 weeks, no lifting left arm above shoulder x2 weeks. She is to use arm sling as directed. She can shower in 24 hours. She may remove dressing in 48 hours and leave open to air. No driving until she follows up with our practice. #2 h/o HTN. BP uncontrolled this morning. It appears her home dose of Lisinopril is 20mg/day she has only received 10mg/day. Upon further inquiry it appears home medication reconciliation is not accurate she is only on Norvasc 5mg/day at home and I did review her home BP measurements and her BP was more controlled just on Norvasc 5/day. thus will restart Norvasc 5mg/day. #3 Disposition; pending course from a cardiac standpoint she may be discharged home. She should f/u with PCP for HTN management. Dr. Fierro agrees with above plan of care. <Sarita Fierro - Last Filed: 04/14/18 19:39> Objective Vital Signs: Temp Pulse Resp BP Pulse Ox 98.0 F 73 18 129/66 98 04/14/18 11:26 04/14/18 11:26 04/14/18 11:26 04/14/18 11:26 04/14/18 11:26 Laboratory Results: 04/12/18 13:22 04/14/18 06:36 INR (Anticoag Therapy) 1.04 (0.77-1.02) H 04/13/18 05:35 Total Bilirubin 0.60 mg/dL (0.2-1.0) 04/12/18 13:22 AST 22 U/L (13-39) 03/04/19 13:22 ALT 18 U/L (7-52) 04/12/18 13:22 Alkaline Phosphatase 53 U/L (34-104) 04/12/18 13:22 CK-MB (CK-2) 2.3 ng/mL (0.6-6.3) 04/12/18 13:22 B-Natriuretic Peptide 110 pg/mL (<=100) H 04/12/18 13:22 Total Protein 7.2 g/dL (6.4-8.9) 04/12/18 13:22 Albumin 4.3 g/dL (3.2-5.2) 04/12/18 13:22 Globulin 2.9 g/dL (2-4) 04/12/18 13:22 Albumin/Globulin Ratio 1.5 (1-3) 04/12/18 13:22 TSH 1.57 mcIU/mL (0.34-5.60) 04/12/18 13:22 04/12/18 13:22 Troponin I 0.00 Assessment/Plan The patient was examined by me personally. The CXR and pacer interrogation were reviewed by me personally. The patient is doing very well POD #1 dual chamber pacer implant. I agree with the above recommendations and plans.
[2018-04-14] MEDS ORDERED: amLODIPine TAB* 5 MG PO SCH (11:00)
[2018-04-14 11:38] VITALS: BP 129/66
--- NOTE | 2018-04-14 22:09 | DS ---
DISCHARGE SUMMARY: DATE OF ADMISSION: 04/13/18 DATE OF DISCHARGE: 04/14/18 ADMITTING PROVIDER: Dr. Suman Robertson ATTENDING PHYSICIAN ON DAY OF DISCHARGE: Dr. Suman Robertson PRIMARY CARE PHYSICIAN: Dr. Thomas OUTPATIENT SOCK LINING STITCHER: Dr. Lim CONSULTING SOCK LINING STITCHER: Dr. Marcus CHIEF COMPLAINT: Lightheadedness. PRINCIPAL DIAGNOSIS: Symptomatic bradycardia with second-degree heart block, now status post pacemaker. HISTORY OF PRESENT ILLNESS AND HOSPITAL COURSE: Britt Trujillo is a 73-year-old female with past medical history of hypertension, anxiety, intermittent second- degree heart block back in January 2018 which did not recur on Holter monitor for a month. Please see H and P for full details. She had been up-titrating back her amlodipine up to 5 mg recently. On the morning of admission, she was lightheaded with walking, had to hold on the side of a wall to prevent her from falling. She checked her heart rate at home, and her heart rate was in the 40s. She came to emergency room, had EKG which showed again 2:1 AV block with heart rate in the 40s. Dr. Marcus was consulted and recommended pacemaker placement which the patient did on hospital day #2. This was uneventful. Her amlodipine had been held in setting of her AV block and the lisinopril had been started for her uncontrolled blood pressure on admission. Per recommendations of , amlodipine will be restarted on discharge. Her TSH was 1.57, BNP was 110. [employer] evaluated the pacer on day of discharge and said it was working well. She is going to have close followup with Olinda Garsia to remove the stitches next week. DISCHARGE MEDICATIONS: Include: 1. Acetaminophen 650 mg p.o. q.6 hours p.r.n. (new). 2. Xanax 0.5 mg p.o. t.i.d. p.r.n. 3. Amlodipine 5 mg p.o. daily. 4. Aspirin 81 mg daily. 5. Atorvastatin 20 mg daily. 6. Keflex 250 mg p.o. t.i.d. for 3 days (new). 7. PreserVision AREDS 2 soft gels 1 capsule p.o. b.i.d. FOLLOWUP: Please follow up with Olinda Garsia on 04/22/18 at 10:[address] Steve Thomas within 7 days. DIET: Heart healthy unchanged. DISPOSITION: Home, improved. TIME SPENT: Time spent on discharge was 35 minutes. [id number]/[facility] #: [id number] [place]
== END 2018-04-14 13:00 | disposition home or self-care (01) | DRG 244 ==
LOC: ED 12:11 → MEDTELE 14:35 → OBSVTOIN 04-13 15:00
PROVIDERS: ADMIT Internal Medicine; ATTEND Internal Medicine
PROC: 02H63JZ Insertion of Pacemaker Lead into Right Atrium, Percutaneous Approach (ICD-10-PCS; 2018-04-13)
PROC: 02HK3JZ Insertion of Pacemaker Lead into Right Ventricle, Percutaneous Approach (ICD-10-PCS; 2018-04-13)
PROC: 0JH606Z Insertion of Pacemaker, Dual Chamber into Chest Subcutaneous Tissue and Fascia, Open Approach (ICD-10-PCS; principal; 2018-04-13 08:00)
DX: I44.1 Atrioventricular block, second degree (principal); R00.1 Bradycardia, unspecified; I10 Essential (primary) hypertension; K57.90 Diverticulosis of intestine, part unspecified, without perforation or abscess without bleeding; M16.0 Bilateral primary osteoarthritis of hip; M19.042 Primary osteoarthritis, left hand; M19.041 Primary osteoarthritis, right hand; E78.5 Hyperlipidemia, unspecified; I45.10 Unspecified right bundle-branch block; M19.012 Primary osteoarthritis, left shoulder; M19.011 Primary osteoarthritis, right shoulder; M40.40 Postural lordosis, site unspecified; H26.9 Unspecified cataract; F41.9 Anxiety disorder, unspecified; Z82.49 Family history of ischemic heart disease and other diseases of the circulatory system; Z82.3 Family history of stroke; Z81.8 Family history of other mental and behavioral disorders; Z88.8 Allergy status to other drugs, medicaments and biological substances; Z91.02 Food additives allergy status; Z79.82 Long term (current) use of aspirin
CPT/HCPCS: 33208; 36415; 71045; 71046; 80048; 80053; 81003; 82550; 82553; 83605; 83735; 83880; 84443; 84484; 85025; 85610; 93005; 99156; 99157; 99283; A9270-GY; C1785; C1892; C1898; G0378; J0690; J2250; J2310; J3010

== ENCOUNTER → 2018-05-06 18:12 | Emergency (ER) | payer MEDICARE, BC ==
--- OUTSIDE RECORDS SUMMARY | 2018-05-06 19:01 | XMS REPORT | Continuity of Care Document ---
:1945 External Reference #:[id number] Author Name Jacquelin Butler Care Team Providers Name Role Phone Steve Thomas MD Primary Care Physician Unavailable Payers Date Identification Numbers Payment Provider Subscriber Policy Number: [id number] Medicare Britt Trujillo PayID: [id number] [address] [place] [address] Policy Number: [id number] [facility] Britt Trujillo Group Name: [id number] [address] [address] PayID: [id number] [place] [address] Advance Directives Description No Information Available Problems Date Description Provider Status Onset: 12/01/2014 Localized, primary osteoarthritis Shanita Call M.D. Active Onset: 05/07/2016 Enthesopathy of hip region Shanita Call M.D. Active Family History Date Family Member(s) Observation Comments General Heart Disease General Cancer Father [...] Form Strength Qnty SIG Indications Ordering Provider Rosemary 03/15/ Active Tablets 5mg 30tabs 1/2 tab [...] 2019 Amlodipine 01/23/ Hx Tablets 5mg 45tabs 1/2 tab Booker Besylate 2018 - by mouth F. Mauser, 02/26/ every day M.D. 2019 Naproxen 05/07/ Hx Tablets 500mg 30tabs 1 [...] Range Note Lipid Panel - JFM 03/15/2018 [facility] Creatine <pending> [address] [employer](CK) [place] [address] [phone] Laboratory test 01/22/2018 [facility] Troponin-I 0.03 ng/mL < 0.04 [address] (TnI) [place] [address] [phone] 1 Troponin-I testing on Plasma Separator Tubes (PST) has a known false positive rate of 0.20-0.40%. All positive troponins reflex immediate secondary confirmatory testing. Procedures Date Code Description Status 03/08/2018 76396 EKG Tracing & Interpretation Completed 02/04/2018 27356 Event Monitor/Phys Review/Interp. Completed 01/27/2018 08156 EKG Tracing & Interpretation Completed 01/22/2018 06407 ECHO Transthorasic Realtime 2D W Doppler & Color Flow Hosp Completed 01/22/2018 20278 Treadmill Interp/Report Only Completed 01/22/2018 64536 Stress Test Supervsn W/Out I/R Completed Encounters Type Date Location Provider Dx Diagnosis Office Visit 03/15/2018 [facility] Olinda Garsia, I10 Essential ( primary) 11:00a Of [facility] N.P. hypertension I44.1 Atrioventricular block, second degree R00.2 Palpitations E78.5 Hyperlipidemia, unspecified Office Visit 03/11/2018 8:20a [facility] Chito Gilliland MD L57.0 Actinic keratosis L82.1 Other seborrheic keratosis L81.4 Other melanin hyperpigmentation D18.01 Hemangioma of skin and subcutaneous tissue Office Visit 03/08/2018 11:20a [facility] Booker Arias I10 Essential (primary) Oscar Lim hypertension I44.1 Atrioventricular block, second degree R00.2 Palpitations R42 Dizziness and giddiness E78.5 Hyperlipidemia, unspecified I65.21 Occlusion and stenosis of right carotid artery I45.10 Unspecified right bundle-branch block R94.31 Abnormal electrocardiogram [ECG] [EKG] Office Visit 01/27/2018 10:00a [facility] Booker Arias R42 Dizziness and Oscar Lim giddiness I10 Essential (primary) hypertension I44.1 Atrioventricular block, second degree R00.2 Palpitations Office Visit 01/26/2018 10:07a [facility] Gio R42 Dizziness and [facility] M.D. giddiness Hospitalists I10 Essential (primary) hypertension E78.5 Hyperlipidemia, unspecified Office Visit 01/23/2018 9:35a [facility] Monika Mckeon, R07.89 Other chest [facility] M.D. pain Hospitalists I10 Essential (primary) hypertension I65.21 Occlusion and stenosis of right carotid artery Office Visit 01/22/2018 3:21p [facility] Booker Arias R07.89 Other chest Oscar Lim pain R11.0 Nausea R42 Dizziness and giddiness R00.1 Bradycardia, unspecified I25.10 Athscl heart disease of [place] coronary artery w/o ang pctrs R94.31 Abnormal electrocardiogram [ECG] [EKG] I10 Essential (primary) hypertension Office Visit 01/22/2018 [facility] Graciela R07.9 Chest pain, 9:35a Assoc,rome Kim, SIL unspecified Hospitalists I10 Essential (primary) hypertension Office [...] osteoarthritis, left knee Plan of Treatment Future Appointment(s):04/22/2018 11:00 am - Olinda Garsia N.P. at [facility]05/11/2018 11:20 am - Booker Lim M.D. at [facility]12/01/2014 - Shanita Call M.D.M25.562 Pain in left kneeNew Medication :Naproxen 500 mg - 1 po bid prn painFollow up:Follow up: 4 rejdkL54.12 Unilateral primary osteoarthritis, left knee
--- OUTSIDE RECORDS SUMMARY | 2018-05-06 19:01 | XMS REPORT | Continuity of Care Document ---
:1945 External Reference #:[id number] Author Name Mira Mccabe Care Team Providers Name Role Phone Steve Thomas MD Primary Care Physician Unavailable Payers Date Identification Numbers Payment Provider Subscriber Policy Number: [id number] Medicare Britt Trujillo PayID: [id number] [address] [place] [address] Policy Number: [id number] [facility] Britt Trujillo Group Name: [id number] [address] [address] PayID: [id number] [place] [address] Advance Directives Description No Information Available Problems [...] Patient has never smoked Smoking Status Reviewed: 04/22/18 Patient has never smoked Exercise Exercises sporadically walks sporadically Type/Frequency Allergies, Adverse Reactions, Alerts Date Description Reaction Status Severity Comments 01/27/2018 FD&C Red 40 Shea Palpitations Active Moderate 01/27/2018 Chlorhexidine RAsh Active Severe 04/22/2018 Atorvastatin high dose/confusion Active 12/01/2014 NKDA Inactive Medications Medication Date Status Form Strength Qnty SIG Indications Ordering Provider Xanax 01/23/ Active Tablets 0.5mg at Unknown 2018 bedtime daily by mouth as needed Aspirin Adult 01/23/ Active Tablets DR 81mg 90tabs 1 by Booker Low Dose 2018 mouth F. Mauser, every day M.D. Preservision 01/23/ Active Capsules Areds 2 1 cap by Unknown Areds 2 + Multi 2018 mouth Vitamin twice daily Amlodipine / Active Tablets 5mg 1 by I10 Unknown Besylate 0000 mouth every day Tylenol Extra / Active Tablets 500mg 1-2 tabs Unknown Strength 0000 by mouth every 6 hours as needed Atorvastatin / Active Tablets 10mg 1 by Unknown Calcium 0000 mouth every day Crestor 03/15/ Hx Tablets 5mg 30tabs 1/2 tab E78.5 Olinda S. 2019 - by mouth Foster, 04/21/ every day N.P. 2019 Amlodipine 03/08/ Hx Tablets 2.5mg 90tabs 1 by I10 Booker Besylate 2019 - mouth F. Madaisha, 04/22/ every day M.D. 2018 Atorvastatin 02/11/ Hx Tablets 20mg 90tabs take 1 Booker Calcium 2018 - tablet at F. Mauser, 02/28/ bedtime M.D. 2018 Amlodipine 01/23/ Hx Tablets 5mg 45tabs 1/2 tab Booker Besylate 2018 - by mouth F. Mauser, 02/26/ every day M.D. 2018 Naproxen 05/07/ Hx Tablets 500mg 30tabs 1 tablet M25.552 Shanita 2016 - with food Jakub, 01/23/ by mouth M.D. 2017 twice a day Naproxen 12/01/ Hx Tablets 500mg 90tabs 1 po bid M25.562 Shanita 2014 - prn pain Jakub, 03/08/ M.D. 2019 Maxzide-25 / Hx Tablets 37.5-25mg 1 by Unknown 0000 - mouth 01/23/ every day 2018 Fish Oil / Hx Capsules 1200mg 1 by Unknown 0000 - mouth 04/21/ twice a 2019 day Immunizations Description No Information Available Vital Signs Date Vital Result Comment 04/22/2018 10:45am Height 65 inches 5'5" Weight 174.25 lb w/o shoes Heart Rate 64 /min BP Systolic Sitting 180 mmHg Rue reg cuff BP Diastolic Sitting 75 mmHg Rue reg cuff BP Systolic Standing 170 mmHg Rue reg cuff BP Diastolic Standing 80 mmHg Rue reg cuff Respiratory Rate 16 /min BMI (Body Mass Index) 29.0 kg/m2 Ejection Fraction 50-55% 01/22/18 echo1 03/15/2018 10:50am Height 65 inches 5'5" Weight [...] Note Lipid Panel - [facility] 03/15/2018 [facility] Creatine <pending> [address] Kinase(CK) [place] [address] [phone] Laboratory test 01/22/2018 [facility] Troponin-I 0.03 ng/mL < 0.[address] (TnI) [place] [address] [phone] 1 Troponin-I testing on Plasma Separator Tubes (PST) has a known false positive rate of 0.20-0.40%. All positive troponins reflex immediate secondary confirmatory testing. Procedures Date Code Description Status 04/13/2018 50196 Moderate Sedation Services; Same Phys Intl 15 Mins; PT >=5 Completed Years 04/13/2018 00928 Perm Pacemaker Av Sequential Atrial And Ventricular Completed 03/08/2018 63307 EKG Tracing & Interpretation Completed 02/04/2018 42551 Event Monitor/Phys Review/Interp. Completed 01/27/2018 32703 EKG Tracing & Interpretation Completed 01/22/2018 71124 ECHO Transthorasic Realtime 2D W Doppler & Color Flow Hosp Completed 01/22/2018 54402 Treadmill Interp/Report Only Completed 01/22/2018 27897 Stress Test Supervsn W/Out I/R Completed Encounters Type Date Location Provider Dx Diagnosis Office Visit 04/14/2018 [facility] Rebeka Davison, I10 Essential ( primary) 12:14p Of [facility] BELT MOLDER hypertension Office Visit 04/12/2018 [facility] Travis Prakash I44.1 Atrioventricular block, 11:00a Of Lisandro Marcus M.D. second degree R00.1 Bradycardia, unspecified Office Visit 03/15/2018 11:00a [facility] Olinda Casas I10 Essential ( primary) Of [facility] Andrew Garsia hypertension I44.1 Atrioventricular block, second degree R00.2 Palpitations E78.5 Hyperlipidemia, unspecified Office Visit 03/11/2018 8:20a [facility] Chito Gilliland MD L57.0 Actinic keratosis L82.1 Other seborrheic keratosis L81.4 Other melanin hyperpigmentation D18.01 Hemangioma of skin and subcutaneous tissue Office Visit 03/08/2018 11:20a [facility] Booker Arias I10 Essential (primary) Oscar Lim hypertension I44.1 Atrioventricular block, second degree R00.2 Palpitations R42 Dizziness and giddiness E78.5 Hyperlipidemia, unspecified I65.21 Occlusion and stenosis of right carotid artery I45.10 Unspecified right bundle-branch block R94.31 Abnormal electrocardiogram [ECG] [EKG] Office Visit 01/27/2018 10:00a [facility] Booker Arias R42 Dizziness and Oscar Lim giddiness I10 Essential (primary) hypertension I44.1 Atrioventricular block, second degree R00.2 Palpitations Office Visit 01/26/2018 10:07a [facility] Gio R42 Dizziness and Assoc,rome Velez M.D. giddiness Hospitalists I10 Essential (primary) hypertension E78.5 Hyperlipidemia, unspecified Office Visit 01/23/2018 9:35a [facility] Monika Mckeon, R07.89 Other chest Assoc,rome Moore pain Hospitalists I10 Essential (primary) hypertension I65.21 Occlusion and stenosis of right carotid artery Office Visit 01/22/2018 3:21p [facility] Booker Arias R07.89 Other chest Oscar Lim pain R11.0 Nausea R42 Dizziness and giddiness R00.1 Bradycardia, unspecified I25.10 [facility] [place] coronary artery w/o ang pctrs R94.31 Abnormal electrocardiogram [ECG] [EKG] I10 Essential (primary) hypertension Office Visit 01/22/2018 [facility] Graciela R07.9 Chest pain, 9:35a Assoc,rome Kim [...] osteoarthritis, left knee Plan of Treatment Future Appointment(s):05/20/2018 11:00 am - [facility] Pacer Schedule at [facility]05/11/2018 11:20 am - Booker Lim M.D. at [facility]04/22/2018 - Olinda Garsia, N.P.I44.1 Atrioventricular block, second oqgjilS59.1 Bradycardia, duidwdlggpuL00 Essential (primary) hypertensionRecommendations:BP elevated here but appears controlled.R00.2 PalpitationsRecommendations:If you continue to have palpitations let us know.E78.5 Hyperlipidemia, unspecifiedRecommendations:Have labs at ordered.Z95.0 Presence of cardiac pacemakerFollow up:PO/OV 4 weeks [facility] after PO or me.Recommendations:Keep arm below level of elbow for 5 weeks, 7 weeks can lift arm above shoulder. Wear sling as a reminder
--- NOTE | 2018-05-06 19:32 | ED ---
Palpitations / Dysrhythmia - HPI Summary HPI Summary: This patient is a 73 year old female presenting [place] [facility] by with a chief complaint of intermittent heart palpitations since this afternoon. Patient recently had a pacemaker placed [address] Marcus. Patient states that she noticed her heartrate was irregular and felt it was abnormal enough to prompt an ED visit. Patient states that she feels no chest pain or pressure. The pain is rated 0/10 in severity. Patient denies lightheadedness, dizziness, SOB. Symptoms aggravated by nothing. Symptoms alleviated by nothing. - History of Current Complaint Chief Complaint: EDDysrhythmPalp Time Seen by Provider: 05/06/18 19:09 Hx Obtained From: Patient Onset/Duration: Lasting Hours, Still Present Timing: Constant Severity Currently: Mild Character: Irregular Aggravating: Nothing Alleviating: Nothing Associated Signs & Symptoms: Negative - lightheadedness, dizziness, SOB, chest pain - Allergy/Home Medications Allergies/Adverse Reactions: Allergies Allergy/AdvReac Type Severity Reaction Status Date / Time chlorhexidine Allergy Rash Verified 04/12/18 13:29 red (food color) Allergy Palpitation Verified 04/12/18 13:29 s dust mites Allergy Congestion Uncoded 04/12/18 13:29 PMH/Surg Hx/FS Hx/Imm Hx Previously Healthy: No Cardiovascular History: Reports: Hx Hypertension - ON DAILY MEDS, CONTROLLED, Hx Pacemaker/ICD - 04/13/18, 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 [place] [facility] [place] SH[place]ER [place]. 2000 D&C [facility] Hx Anesthesia Reactions: Yes - SLOW TO WAKE UP Infectious Disease History: No Infectious Disease History: Denies: Traveled Outside the [place] in Last 30 Days - Family History Known Family History: Positive: Cardiac Disease, Hypertension, Other - stroke - Social History Lives: With Family Alcohol Use: None Hx Substance Use: No Substance Use Type: Reports: None Hx Tobacco Use: No Smoking Status (MU): Never Smoked Tobacco Review of Systems Negative: Fever Positive: Palpitations. Negative: Chest Pain Negative: Shortness Of Breath Neurological: Negative - Dizziness, Lightheadedness All Other Systems Reviewed And Are Negative: Yes Physical Exam - Summary Physical Exam Summary: Appearance: Well-appearing, Well-nourished, lying in bed comfortably Skin: Warm, dry, no obvious rash Eyes: sclera anicteric, no conjunctival pallor ENT: mucous membranes moist, pharynx appears normal Neck: Supple, nontender Respiratory: Clear to auscultation, no signs of respiratory distress Cardiovascular: Normal S1, S2. No murmurs. Normal distal pulses in tibial and radial bilaterally. Well healed pacer pocket left upper chest. Abdomen: Soft, nontender, normal active bowel sounds present Musculoskeletal: Normal, Strength/ROM Intact Neurological: A&Ox3, awake and alert, mentation is normal, speech is fluent and appropriate Psychiatric: affect is normal, does not appear anxious or depressed Triage Information Reviewed: Yes Vital Signs On Initial Exam: Initial Vitals Temp Pulse Resp BP Pulse Ox 97.4 F 66 18 167/92 95 05/06/18 18:14 05/06/18 18:14 05/06/18 18:14 05/06/18 18:14 05/06/18 18:14 Vital Signs Reviewed: Yes Diagnostics - Vital Signs Vital Signs Temp Pulse Resp BP Pulse Ox 05/06/18 18:14 97.4 F 66 18 167/92 95 - Laboratory Result Diagrams: 05/06/18 19:48 05/06/18 19:48 Lab Statement: Any lab studies that have been ordered have been reviewed, and results considered in the medical decision making process. - EKG 1822 Cardiac Rate: Other Rate EKG Rhythm: Atrial Fibrillation Summary of EKG Findings: An EKG, taken 1822, reveals Atrial-paced complexes (63 BPM), RBBB Course/Dx - Course Course Of Treatment: This patient is a 73 year old female presenting to [facility] accompanied by with a chief complaint of heart palpitations since this afternoon. Patient recently had a pacemaker placed [address] Marcus. Patient states that she noticed her heartrate was irregular and felt it was abnormal enough to prompt an ED visit. Patient states that she feels no chest pain or pressure. An EKG, taken 1822, reveals Atrial-paced complexes (63 BPM), RBBB. Patient will be discharged with a dx of palpitations. Patient is advised to follow up with PCP in 3 days. The patient is agreeable with this plan. - Diagnoses Provider Diagnoses: Heart palpitations Discharge - Sign-Out/Discharge Documenting (check all that apply): Patient Departure - Discharge Patient Received Moderate/Deep Sedation with Procedure: No - Discharge Plan Condition: Good Disposition: HOME Patient Education Materials: Heart Palpitations (ED) Referrals: Steve Thomas MD [Primary Care Provider] - Additional Instructions: Your doctor can order an ambulatory heart rhythm monitor test, similar to what you had before the pacemaker, if this continues and we don't catch it on a monitor of some sort. Your blood work looked ok tonight. If this comes on again and you basically feel ok, no chest pain, sweats, lightheadedness, shortness of breath, you don't necessarily need to come back unless it is prolonged over more than a few hours. Contact your venetian blind tape cutter in the morning for followup. - Billing Disposition and Condition Condition: GOOD Disposition: Home - Attestation Statements Document Initiated by Ninfa: Yes Documenting Lorrieibe: Christine Girard Provider For Whom Ninfa is Documenting (Include Credential): Tr Barry MD Scribe Attestation: Christine Eldridge, scribed for Tr Barry MD on 05/07/18 at 0433. Scribe Documentation Reviewed: Yes Provider Attestation: The documentation as recorded by the Christine fuentes accurately reflects the service I personally performed and the decisions made by me, Tr Barry MD Status of Scribcesia Document: Viewed
[2018-05-06 20:01] LABS: ABS Basophils 0.1 10^3/ul (0-0.2); ABS Eosinophils 0.1 10^3/ul (0-0.6); ABS Lymphocytes 1.4 10^3/ul (1.0-4.8); ABS Monocytes 0.6 10^3/ul (0-0.8); ABS Neutrophils 3.5 10^3/ul (1.5-7.7); ABS Nucleated RBC 0 10^3/ul; Eosinophil % 1.7 %; Hematocrit 40 % (33-41); Hemoglobin 13.8 g/dL (12.0-16.0); Lymphocyte % 25.2 %; Mean Corpuscular HGB Conc 34 g/dL (31-36); Mean Corpuscular Hemoglobin 30 pg (27-31); Mean Corpuscular Volume 86 fL (80-97); Mean Platelet Volume 8.4 fL (7.4-10.4); Nucleated Red Blood Cells % 0.1; Platelet Count 182 10^3/uL (150-450); Red Blood Count 4.68 10^6 /uL (3.70-4.87); Red Cell Distribution Width 15 % (10.5-15); White Blood Count 5.7 10^3/uL (3.5-10.8)
[2018-05-06 20:17] LABS: BUN/Creatinine Ratio 14.5 (8-20); Calcium 9.1 mg/dL (8.6-10.3); EGFR African American 81.3 (>60); EGFR Non-African American 67.2 (>60); Potassium 3.4 mmol/L (3.5-5.0)
[2018-05-06 20:19] VITALS: BP 181/79
[2018-05-06 20:55] LABS: TSH (Thyroid Stimulating Horm) 0.94 mcIU/mL (0.34-5.60)
== END | disposition home or self-care (01) ==
LOC: ED 18:12
DX: R00.2 Palpitations (principal); I10 Essential (primary) hypertension; M19.90 Unspecified osteoarthritis, unspecified site; Z95.0 Presence of cardiac pacemaker
CPT/HCPCS: 36415; 80048; 84443; 85025; 93005; 99283

== ENCOUNTER 2018-09-21 10:45 | Emergency (ER) | payer MEDICARE, BC ==
--- OUTSIDE RECORDS SUMMARY | 2018-09-21 11:23 | XMS REPORT | Continuity of Care Document ---
:1945 External Reference #:[id number] Author Name Mary Jane Irvin Care Team Providers Name Role Phone Steve Thomas MD Primary Care Physician Unavailable Payers Date Identification Numbers Payment Provider Subscriber Policy Number: [id number] Medicare Britt Trujillo PayID: [id number] [address] [place] [address] Policy Number: [id number] [facility] Britt Trujillo Group Name: [id number] [address] [address] PayID: [id number] [place] [address] Problems Active Problems Provider Date Localized, primary osteoarthritis Shanita Call M.D. Onset: 12/01/2014 Enthesopathy of hip region Shanita Call M.D. Onset: 05/07/2016 Localized, primary osteoarthritis of the pelvic Shanita Call M.D. Onset: region and thigh Family History Date Family Member(s) Observation Comments [...] Use Start: Unknown Patient has never smoked Recreational Drug Use Denies Drug Use Smoking Status Reviewed: 09/10/18 Patient has never smoked Exercise Type/Frequency Exercises regularly walking, Senior strength training twice per week Allergies, Adverse Reactions, Alerts Active Allergies Reaction Severity Comments Date FD&C Red 40 Shea Palpitations Moderate 01/27/2018 Chlorhexidine RAsh Severe 01/27/2018 Atorvastatin high dose/confusion 04/22/2018 Inactive Allergies NKDA 12/01/2014 Medications Active Medications SIG Qnty Indications Ordering Provider Date Xanax daily by mouth Unknown 01/23/2018 0.5mg Tablets as needed Preservision Areds 2 + 1 cap by mouth Unknown 01/23/2018 Multi Vitamin twice daily Areds 2 Capsules Tylenol 8 Hour 1 by mouth every Unknown 650mg 8 hours as Tablets ER needed for pain Lisinopril-Hydrochlorot 1 by mouth every Unknown hiazide day 20-25mg Tablets Pravastatin Sodium 1 by mouth every Unknown 20mg day Tablets History Medications Crestor 1/2 tab by 30tabs E78.5 Olinda Garsia, 03/15/2018 - 5mg Tablets mouth every day N.P. 04/21/2018 Amlodipine Besylate 1 by mouth 90tabs I10 Booker Arias 03/08/2018 - every day Oscar Lim 04/22/2018 2.5mg Tablets Atorvastatin Calcium take 1 tablet 90tabs Booker Arias 02/11/2018 - at bedtime Oscar Lim 02/28/2018 20mg Tablets Aspirin Adult Low 1 by mouth 90tabs Booker Arias 01/23/2018 - Dose every day Oscar Lim 07/27/[address] Amlodipine Besylate 1/2 tab by 45tabs Booker Arias 01/23/2018 - 5mg mouth every day Oscar Lim 02/26/2018 Tablets Naproxen 1 tablet with 30tabs M25.552 Shanita Call, 05/07/2016 - 500mg Tablets food by mouth M.D. 01/23/2018 twice a day Naproxen 1 po bid prn 90tabs M25.562 Shanita Call, 12/01/2014 - 500mg Tablets pain M.D. 03/08/2018 Maxzide-25 1 by mouth Unknown - 37.5-25mg every day 01/23/2018 Tablets Fish Oil 1 by mouth Unknown - 1200mg twice a day 04/21/2018 Capsules Amlodipine Besylate 1 by mouth I10 Unknown - 5mg every day 07/06/2018 Tablets Tylenol Extra 1-2 tabs by Unknown - Strength mouth every 6 07/29/2018 500mg Tablets hours as needed Atorvastatin Calcium 1/2 by mouth Unknown - every day 07/27/2018 10mg Tablets bedtime Lisinopril 1 by mouth Unknown - 5mg Tablets every day 07/06/2018 Lisinopril Take 2 Tablet Unknown - 10mg Tablets By Mouth Every 09/10/2018 Day Vital Signs Date Vital Result Comment 09/10/2018 11:04am Height 65 inches 5'5" Weight 161.00 lb stated Heart Rate 68 /min BP Systolic 156 mmHg BP Diastolic 80 mmHg Respiratory Rate 12 /min Pain Level 0 BMI (Body Mass Index) 26.8 kg/m2 07/30/2018 12:01pm Height 65 inches 5'5" Weight 166.00 lb Heart Rate 72 /min BP Systolic Sitting 155 mmHg Lue, regular cuff BP Diastolic Sitting 85 mmHg Lue, regular cuff BP Systolic Standing 145 mmHg Lue, regular cuff BP Diastolic Standing 75 mmHg Lue, regular cuff BMI (Body Mass Index) 27.6 kg/m2 07/07/2018 3:17pm Height 65 inches 5'5" Weight 166.00 lb Heart Rate 73 /min BP Systolic Sitting 178 mmHg Lue reg cuff BP Diastolic Sitting 70 mmHg Lue reg cuff BP Systolic Standing 178 mmHg Lue reg cuff BP Diastolic Standing 70 mmHg Lue reg cuff Respiratory Rate 18 /min BMI (Body Mass Index) 27.6 kg/m2 Ejection Fraction 55-60% Echo 01/22/18 07/07/2018 8:20am Height 65 inches 5'5" Weight 166.00 lb BP Systolic 150 mmHg BP Diastolic 80 mmHg Body Temperature 98.1 F BMI (Body Mass Index) 27.6 kg/m2 05/21/2018 11:42am Height 65 inches 5'5" Weight 171.00 lb w/shoes Heart Rate 70 /min reg BP Systolic 170 mmHg rue reg cuff BP Diastolic 70 mmHg rue reg cuff BP Systolic Sitting 150 mmHg Rue reg cuff BP Diastolic Sitting 72 mmHg Rue reg cuff BP Systolic Standing 140 mmHg Rue reg cuff BP Diastolic Standing 76 mmHg Rue reg cuff Respiratory Rate 16 /min BMI (Body Mass Index) 28.5 kg/m2 04/22/2018 10:45am Height 65 inches 5'5" Weight [...] Note Lipid Panel - JFM 03/15/2018 [facility] Creatine <pending> [address] Kinase(CK) [place] [address] [phone] Laboratory test 01/22/2018 [facility] Troponin-I 0.03 ng/mL < 0.04 [address] (TnI) [place] [address] [phone] 1 Troponin-I testing on Plasma Separator Tubes (PST) has a known false positive rate of 0.20-0.40%. All positive troponins reflex immediate secondary confirmatory testing. Procedures Date Code Description Status 08/20/2018 94047 Pace Maker Eval W/Iterative Adjment Dual Lead Completed 08/20/2018 65574 Pace Maker Eval W/Iterative Adjment Dual Lead Completed 07/16/2018 70051 ECHO Transthoracic, Real-Time 2D With Doppler And Color Completed Flow 07/16/2018 15662 ECHO Transthoracic, Real-Time 2D With Doppler And Color Completed Flow 07/07/2018 42670 EKG Tracing & Interpretation Completed 05/21/2018 70199 Pace Maker Eval W/Iterative Adjment Dual Lead Completed 05/21/2018 85259 Pace Maker Eval W/Iterative Adjment Dual Lead Completed 04/22/2018 00178 Pace Maker Eval W/Iterative Adjment Dual Lead Completed 04/14/2018 43616 EKG, Interpretation Only Completed 04/13/2018 65065 Perm Pacemaker Av Sequential Atrial And Ventricular Completed 04/13/2018 38225 EKG, Interpretation Only Completed 04/13/2018 27060 Moderate Sedation Services; Same Phys Intl 15 Mins; PT >=5 Completed Years 04/12/2018 54737 EKG, Interpretation Only Completed 03/08/2018 04171 EKG Tracing & Interpretation Completed 02/04/2018 30322 Event Monitor/Phys Review/Interp. Completed 01/27/2018 68917 EKG Tracing & Interpretation Completed 01/22/2018 12186 ECHO Transthorasic Realtime 2D W Doppler & Color Flow Hosp Completed 01/22/2018 90045 Treadmill Interp/Report Only Completed 01/22/2018 57820 Stress Test Supervsn W/Out I/R Completed Encounters Type Date Location Provider Dx Diagnosis Office Visit 07/30/2018 [facility] Travis Marcus, Z95.0 Presence of 12:15p Of Lisandro Moore cardiac pacemaker R06.02 Shortness of breath Office Visit 07/07/2018 3:45p [facility] Travis Prakash Z95.2 Presence of Of Lisandro Marcus M.D. prosthetic heart valve R00.2 Palpitations I44.1 Atrioventricular block, second degree Z95.0 Presence of cardiac pacemaker R07.9 Chest pain, unspecified Office Visit 07/07/2018 8:[facility]a [facility] Shanita Jakub, M25.552 Pain in left Of C.M.A. M.D. hip M25.551 Pain in right hip M16.11 Unilateral primary osteoarthritis, right hip M16.12 Unilateral primary osteoarthritis, left hip Office Visit 05/21/2018 12:00p [facility] Travis Prakash R00.1 Bradycardia, Of Lisandro Marcus M.D. unspecified Z95.0 Presence of cardiac pacemaker I44.1 Atrioventricular block, second degree Office Visit 04/22/2018 [facility] Olinda Casas I44.1 Atrioventricular 11:00a Cardiology Of Ady, N.P. block, second degree Sewer Inspector R00.1 Bradycardia, unspecified I10 Essential (primary) hypertension R00.2 Palpitations E78.5 Hyperlipidemia, unspecified Z95.0 Presence of cardiac pacemaker Office Visit 04/14/2018 12:14p [facility] Rebeka Thuman, I10 Essential Of Sewer Inspector HOME OFFICE CLAIMS EXAMINER (primary) hypertension Office Visit 04/14/2018 10:21a [facility] Suman Robertson MD R42 Dizziness and Assoc, justice Hospitalists I44.1 Atrioventricular block, second degree R00.1 Bradycardia, unspecified Z95.0 Presence of cardiac pacemaker Office Visit 04/13/2018 [facility] Suman Robertson, I44.1 Atrioventricular 10:21a Assoc,rome ERWIN block, second degree Hospitalists I10 Essential (primary) hypertension E78.5 Hyperlipidemia, unspecified F41.9 Anxiety disorder, unspecified Office Visit 04/12/2018 10:20a [facility] Clay Robertson MD R42 Dizziness and Assoc,pc justice Hospitalists I44.1 Atrioventricular block, second degree I10 Essential (primary) hypertension E78.5 Hyperlipidemia, unspecified Office Visit 04/12/2018 [facility] Travis Prakash I44.1 Atrioventricular 11:00a Cardiology Rudy Marcus M.D. block, second degree [facility] R00.1 Bradycardia, unspecified Office Visit 03/15/2018 11:00a [facility] Olinda Casas I10 Essential ( primary) Of [facility] Andrew Garsia hypertension I44.1 Atrioventricular block, second degree R00.2 Palpitations E78.5 Hyperlipidemia, unspecified Office Visit 03/11/2018 8:20a [facility] Dermatology Chito Gilliland MD L57.0 Actinic keratosis L82.1 Other seborrheic keratosis L81.4 Other melanin hyperpigmentation D18.01 Hemangioma of skin and subcutaneous tissue Office Visit 03/08/2018 11:20a [facility] Booker Arias I10 Essential (primary) Oscar Lim hypertension I44.1 Atrioventricular block, second degree R00.2 Palpitations R42 Dizziness and giddiness E78.5 Hyperlipidemia, unspecified I65.21 Occlusion and stenosis of right carotid artery I45.10 Unspecified right bundle-branch block R94.31 Abnormal electrocardiogram [ECG] [EKG] Office Visit 01/27/2018 10:00a [facility] Booker Arias R42 Dizziness and Oscar Lim giddiness I10 Essential (primary) hypertension I44.1 Atrioventricular block, second degree R00.2 Palpitations Office Visit 01/26/2018 10:07a [facility] Gio R42 Dizziness and Assoc,rome Velez M.D. giddiness Hospitalists I10 Essential (primary) hypertension E78.5 Hyperlipidemia, unspecified Office Visit 01/23/2018 9:35a [facility] Monika Mckeon, R07.89 Other chest Assocrome M.D. pain Hospitalists I10 Essential (primary) hypertension I65.21 Occlusion and stenosis of right carotid artery Office Visit 01/22/2018 3:21p [facility] Booker Arias R07.89 Other chest Oscar Lim pain R11.0 Nausea R42 Dizziness and giddiness R00.1 Bradycardia, unspecified I25.10 Athscl heart disease of [place] coronary artery w/o ang pctrs R94.31 Abnormal electrocardiogram [ECG] [EKG] I10 Essential (primary) hypertension Office Visit 01/22/2018 [facility] R07.9 Chest pain, 9:35a Assoc,rome Kim, HOME OFFICE CLAIMS EXAMINER unspecified Hospitalists I10 Essential (primary) hypertension Office [...] primary osteoarthritis, left knee Plan of Treatment 12/01/2014 - Shanita Call M.D.M25.562 Pain in left kneeNew Medication:Naproxen 500 mg - 1 po bid prn painFollow up:Follow up: 4 qlnwdS54.12 Unilateral primary osteoarthritis, left knee
[2018-09-21 12:06] LABS: ABS Eosinophils 0.1 10^3/ul (0-0.6); ABS Monocytes 0.5 10^3/ul (0-0.8); ABS Neutrophils 5.4 10^3/ul (1.5-7.7); Eosinophil % 0.9 %; Hematocrit 43 % (35-47); Mean Corpuscular HGB Conc 35 g/dL (31-36); Mean Corpuscular Hemoglobin 31 pg (27-31); Mean Corpuscular Volume 87 fL (80-97); Mean Platelet Volume 7.6 fL (7.4-10.4); Platelet Count 196 10^3/uL (150-450); Red Cell Distribution Width 14 % (10-15)
[2018-09-21 12:13] LABS: INR 1.09 (0.82-1.09)
[2018-09-21 12:28] LABS: Albumin 4.2 g/dL (3.2-5.2); Albumin/Globulin Ratio 1.6 (1-3); Calcium 9.6 mg/dL (8.6-10.3); EGFR African American 60.7 (>60); EGFR Non-African American 50.1 (>60); Globulin 2.7 g/dL (2-4); Potassium 3.7 mmol/L (3.5-5.0); Total Bilirubin 0.5 mg/dL (0.2-1.0); Total Protein 6.9 g/dL (6.4-8.9)
--- NOTE | 2018-09-21 13:37 | ED ---
Dizziness - HPI Summary HPI Summary: Pt is a 73 y/o F presenting to the ED with a chief complaint of dizziness. She states since 09/18/18, she has been dizzy, lightheaded, and out of it. Today, she was unloading boxes from a truck when she began to feel lightheaded, and she noted that her pulse was 35. She denies CP, SOB, fever, weakness in her extremities, slurred speech, or change in vision. Dr. Marcus is her worm raiser , and she has a pacemaker. - History Of Current Complaint Chief Complaint: EDGeneral Stated Complaint: IRREGULAR HR,LOW O2 SAT PER PT Time Seen by Provider: 09/21/18 13:09 Hx Obtained From: Patient Timing: Hours Severity Initially: Moderate Severity Currently: Moderate Character: Lightheaded, Dizzy Aggravating Factor(s): Nothing Alleviating Factor(s): Nothing Associated Signs And Symptoms: Negative: Chest Pain, SOB, Visual Changes, Slurred Speech - Allergies/Home Medications Allergies/Adverse Reactions: Allergies Allergy/AdvReac Type Severity Reaction Status Date / Time chlorhexidine Allergy Rash Verified 04/12/18 13:29 red (food color) Allergy Palpitation Verified 04/12/18 13:29 s [id number]-Hnc Reductase Allergy See Comment Verified 09/21/18 10:56 Inhibitor dust mites Allergy Congestion Uncoded 04/12/18 13:29 Home Medications: Home Medications Acetaminophen [Arthritis Pain Relief] 650 mg PO Q6H PRN 09/21/18 [History Confirmed 09/21/18] PMH/Surg Hx/FS Hx/Imm Hx Previously Healthy: Yes Endocrine/Hematology History: Denies: Hx Diabetes Cardiovascular History: Reports: Hx Hypertension - ON DAILY MEDS, CONTROLLED, Hx Pacemaker/ICD - 04/13/18, Hx 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. 1970 ANAL F[facility]ULA [facility] [place]. 2000 RT SHOULDER [facility]. 2000 D&C [facility] Hx Anesthesia Reactions: Yes - SLOW TO WAKE UP Infectious Disease History: No Infectious Disease History: Denies: Traveled Outside the [place] in Last 30 Days - Family History Known Family History: Positive: Cardiac Disease, Hypertension, Other - stroke - Social History Alcohol Use: None Hx Substance Use: No Substance Use Type: Reports: None Hx Tobacco Use: No Smoking Status (MU): Never Smoked Tobacco Review of Systems Negative: Fever Eyes: Negative Negative: Chest Pain Negative: Shortness Of Breath Neurological: Other - lightheaded, dizziness Negative: Weakness, Slurred Speech All Other Systems Reviewed And Are Negative: Yes Physical Exam - Summary Physical Exam Summary: Constitutional: Well-developed, Well-nourished, Alert. (-) Distressed Skin: Warm, Dry HENT: Normocephalic; Atraumatic Eyes: Conjunctiva normal Neck: Musculoskeletal ROM normal neck. (-) JVD, (-) Stridor, (-) Tracheal deviation Cardio: Rhythm regular, rate normal, Heart sounds normal; Intact distal pulses; The pedal pulses are 2+ and symmetric. Radial pulses are 2+ and symmetric. (-) Murmur Pulmonary/Chest wall: Effort normal. (-) Respiratory distress, (-) Wheezes, (-) Rales Abd: Soft, (-) tenderness, (-) Distension, (-) Guarding, (-) Rebound Musculoskeletal: (-) Edema Lymph: (-) Cervical adenopathy Neuro: Alert, Oriented x3. Out of 5 strength in all extremities. Patient ambulatory without any difficulty. Finger to nose intact. Psych: Mood and affect Normal Triage Information Reviewed: Yes Vital Signs On Initial Exam: Initial Vitals Temp Pulse Resp BP Pulse Ox 96.9 F 73 20 177/73 98 09/21/18 10:55 09/21/18 10:55 09/21/18 10:55 09/21/18 10:55 09/21/18 10:55 Vital Signs Reviewed: Yes Diagnostics - Vital Signs Vital Signs Temp Pulse Resp BP Pulse Ox 09/21/18 10:55 96.9 F 73 20 177/73 98 - Laboratory Lab Results: Lab Results 09/21/18 09/21/18 09/21/18 Range/Units 11:53 11:56 11:56 WBC 7.0 (3.5-10.8) 10^3/uL RBC 4.90 H (3.70-4.87) 10^6 /uL Hgb 15.0 (12.0-16.0) g/dL Hct 43 (35-47) % MCV 87 (80-97) fL MCH 31 (27-31) pg MCHC 35 (31-36) g/dL RDW 14 (10-15) % Plt Count 196 (150-450) 10^3/uL MPV 7.6 (7.4-10.4) fL Neut % (Auto) 76.7 % Lymph % (Auto) 14.0 % Donley % (Auto) 7.7 % Eos % (Auto) 0.9 % Baso % (Auto) 0.7 % Absolute Neuts (auto) 5.4 (1.5-7.7) 10^3/ul Absolute Lymphs (auto) 1.0 (1.0-4.8) 10^3/ul Absolute Monos (auto) 0.5 (0-0.8) 10^3/ul Absolute Eos (auto) 0.1 (0-0.6) 10^3/ul Absolute Basos (auto) 0.0 (0-0.2) 10^3/ul Absolute Nucleated RBC 0.0 10^3/ul Nucleated RBC % 0.0 INR (Anticoag Therapy) 1.09 (0.82-1.09) Sodium 135 (135-145) mmol/L Potassium 3.7 (3.5-5.0) mmol/L Chloride 103 (101-111) mmol/L Carbon Dioxide 26 (22-32) mmol/L Anion Gap 6 (2-11) mmol/L BUN 15 (6-24) mg/dL Creatinine 1.07 H (0.51-0.95) mg/dL Est GFR ( Amer) 60.7 (>60) Est GFR (Non-Af Amer) 50.1 (>60) BUN/Creatinine Ratio 14.0 (8-20) Glucose 105 H (70-100) mg/dL Calcium 9.6 (8.6-10.3) mg/dL Total Bilirubin 0.50 (0.2-1.0) mg/dL AST 19 (13-39) U/L ALT 13 (7-52) U/L Alkaline Phosphatase 52 (34-104) U/L Troponin I 0.00 (<0.04) ng/mL Total Protein 6.9 (6.4-8.9) g/dL Albumin 4.2 (3.2-5.2) g/dL Globulin 2.7 (2-4) g/dL Albumin/Globulin Ratio 1.6 (1-3) Result Diagrams: 09/21/18 11:56 09/21/18 11:53 Lab Statement: Any lab studies that have been ordered have been reviewed, and results considered in the medical decision making process. - EKG 1049 Cardiac Rate: Other Rate - paced 64bpm EKG Rhythm: 1st Degree HB ST Segment: Normal Ectopy: None Summary of EKG Findings: EKG at 1049 shows paced rhythm at 64bpm with LBBB. No STEMI per Sgarbossa criteria. 1st degree heart block. Dizzy Course/Dx - Course Course Of Treatment: She is here with an episode of presyncope this morning. Patient monitor her heart rate at home with a pulse ox Center which showed her heart rate in the 30s. Upon arrival, patient had a heart rate 60s was overall well-appearing. He had a normal neurologic and cardiovascular exam here. Patient had her pacemaker interrogated with no abdomen mildly noted's morning. Patient's CBC, CMP, troponin performed which were all grossly unremarkable. Patient is encouraged to call her worm raiser for further workup and monitoring. Patient was comfortable with discharge and had her questions answered. - Diagnoses Provider Diagnoses: Lightheadedness, Pacemaker, Pre-syncope Discharge - Sign-Out/Discharge Documenting (check all that apply): Patient Departure Patient Received Moderate/Deep Sedation with Procedure: No - Discharge Plan Condition: Stable Disposition: HOME Patient Education Materials: Lightheadedness (ED) Referrals: Steve Thomas MD [Primary Care Provider] - Additional Instructions: Please follow up with your primary care provider as well as your worm raiser within the next 2-3 days. Return to the emergency department with any new or worsening symptoms. - Billing Disposition and Condition Condition: STABLE Disposition: Home - Attestation Statements Document Initiated by Scribe: Yes Documenting Scribe: Genevieve Dorman Provider For Whom Scribe is Documenting (Include Credential): Aly Hardy MD. Scribe Attestation: I, Genevieve Dorman, scribed for Aly Hardy MD. on 09/21/18 at 1451. Scribe Documentation Reviewed: Yes Provider Attestation: The documentation as recorded by the marileeibcesia, Genevieve Dorman accurately reflects the service I personally performed and the decisions made by me, Aly Hardy MD. Status of Scribe Document: Viewed
[2018-09-21 14:44] VITALS: BP 168/89
== END 2018-09-21 14:43 | disposition home or self-care (01) ==
LOC: ED 10:45
DX: R42 Dizziness and giddiness (principal); R55 Syncope and collapse; Z95.0 Presence of cardiac pacemaker; I10 Essential (primary) hypertension; F41.9 Anxiety disorder, unspecified; Z88.8 Allergy status to other drugs, medicaments and biological substances; Z79.899 Other long term (current) drug therapy
CPT/HCPCS: 36415; 80053; 84484; 85025; 85610; 93005; 99282

== ENCOUNTER 2019-01-02 10:03 | Emergency (ER) | payer MEDICARE, BC ==
--- OUTSIDE RECORDS SUMMARY | 2019-01-02 10:10 | XMS REPORT | Continuity of Care Document ---
:1945 External Reference #:[id number] Author Name Travis Marcus M.D. (transmitted by agent of provider Anh Willingham) Address [address] [place] [address] Care Team Providers Name Role Phone Steve Thomas MD - Internal Care Team Information Geospatial Information Scientist Medicine Problems Active Problems Provider Date Localized, primary osteoarthritis Shanita Call M.D. Onset: 12/01/2014 Enthesopathy of hip region Shanita Call M.D. Onset: 05/07/2016 Localized, primary osteoarthritis of the pelvic Shanita Call M.D. Onset: region and thigh Social History Type Date Description Comments Sex Unknown ETOH Use Rarely consumes alcohol Tobacco Use Start: Unknown Patient has never smoked Recreational Drug Use Denies Drug Use Smoking Status Reviewed: 12/20/18 Patient has never smoked Exercise Type/Frequency Exercises [...] mouth every Unknown hiazide day 20-25mg Tablets Immunizations Description No Information Available Vital Signs Date Vital Result Comment 12/20/2018 10:53am Height 65 inches 5'5" Weight 148.50 lb with shoes Heart Rate 70 /min BP Systolic Sitting 140 mmHg Rue reg cuff BP Diastolic Sitting 70 mmHg Rue reg cuff BP Systolic Standing 140 mmHg Rue reg cuff BP Diastolic Standing 72 mmHg Rue reg cuff Respiratory Rate 12 /min BMI (Body Mass Index) 24.7 kg/m2 09/10/2018 11:04am Height 65 inches 5'5" Weight 161.00 lb stated Heart Rate 68 /min BP Systolic 156 mmHg BP Diastolic 80 mmHg Respiratory Rate 12 /min Pain Level 0 BMI (Body Mass Index) 26.8 kg/m2 Results Description No Information Available Procedures Date Code Description Status 11/26/2018 78139 Dest Lesion Each Addl Lesion 2 Through 14 Each Completed 11/26/2018 43937 Destruction ALL Benign Or Premalignant Lesion (Other Than Completed [place] 11/08/2018 28610 Icd Eval Sing,Dual,Multi Lead Remote Recpt Transm Tech Rev Completed Tech S 11/08/2018 67070 Pacemaker Check Remote Up To 90Days Single,Dual,Multiple Completed Lead 11/08/2018 05889 Icd Eval Sing,Dual,Multi Lead Remote Recpt Transm Tech Rev Completed Tech S 11/08/2018 47236 Pacemaker Check Remote Up To 90Days Single,Dual,Multiple Completed Lead 08/20/2018 71773 Pace Maker Eval W/Iterative Adjment Dual Lead Completed 08/20/2018 21995 Pace Maker Eval W/Iterative Adjment Dual Lead Completed 07/16/2018 76318 ECHO Transthoracic, Real-Time 2D With Doppler And Color Completed Flow 07/16/2018 09054 ECHO Transthoracic, Real-Time 2D With Doppler And Color Completed Flow 07/07/2018 30360 EKG Tracing & Interpretation Completed Medical Devices Description No Information Available Encounters Type Date Location Provider Dx Diagnosis Office Visit 11/26/2018 [facility] Chito Gilliland MD L82.1 Other seborrheic 10:50a keratosis L57.0 Actinic keratosis Office Visit 09/10/2018 [place] Shanita M16.11 Unilateral primary 11:00a [facility] osteoarthritis, right [place] hip M16.12 Unilateral primary osteoarthritis, left hip M25.552 Pain in left hip M25.551 Pain in right hip Office Visit 07/30/2018 12:15p [facility] Travis Prakash Z95.0 Presence of Of Lisandro Marcus M.D. cardiac pacemaker R06.02 Shortness of breath Office Visit 07/07/2018 3:45p [facility] Travis Prakash Z95.2 Presence of Of Lisandro Marcus M.D. prosthetic heart valve R00.2 Palpitations I44.1 Atrioventricular block, second degree Z95.0 Presence of cardiac pacemaker R07.9 Chest pain, unspecified Office Visit 07/07/2018 8:15a [facility] Shanitademetris Call, M25.552 Pain in left at [place] M.DSahil hip M25.551 Pain in right hip M16.11 Unilateral primary osteoarthritis, right hip M16.12 Unilateral primary osteoarthritis, left hip Assessments Date Code Description Provider 12/20/2018 I44.1 Atrioventricular block, second degree Travis Marcus M.D. 12/20/2018 Z95.0 Presence of cardiac pacemaker Travis Marcus M.D. 12/20/2018 R00.2 Palpitations Travis Marcus M.D. 11/26/2018 L82.1 Other seborrheic keratosis Chito Gilliland MD 11/26/2018 L57.0 Actinic keratosis Chito Gilliland MD 11/08/2018 I44.1 Atrioventricular block, second degree Travis Marcus M.D. 11/08/2018 I44.1 Atrioventricular block, second degree Remote Device Checks 11/08/2018 Z95.0 Presence of cardiac pacemaker Travis Marcus M.D. 11/08/2018 Z95.0 Presence of cardiac pacemaker Remote Device Checks 09/10/2018 M16.11 Unilateral primary osteoarthritis, right Shanita Call M.D. hip 09/10/2018 M16.12 Unilateral primary osteoarthritis, left hip Shanita Call M.D. 09/10/2018 M25.552 Pain in left hip Shanita Call M.D. 09/10/2018 M25.551 Pain in right hip Shanita Call M.D. 08/20/2018 Z95.0 Presence of cardiac pacemaker Travis Marcus M.D. 08/20/2018 Z95.0 Presence of cardiac pacemaker Ica Pacer Schedule 08/20/2018 I44.1 Atrioventricular block, second degree Ica Pacer Schedule 07/30/2018 Z95.0 Presence of cardiac pacemaker Travis Marcus M.D. 07/30/2018 R06.02 Shortness of breath Travis Marcus M.D. 07/16/2018 R07.9 Chest pain, unspecified Travis Marcus M.D. 07/16/2018 R07.9 Chest pain, unspecified Traveling ECHO 2 07/07/2018 Z95.2 Presence of prosthetic heart valve Travis Marcus M.D. 07/07/2018 M25.552 Pain in left hip Shanita Call M.D. 07/07/2018 R00.2 Palpitations Travis Marcus M.D. 07/07/2018 M25.551 Pain in right hip Shanita Call M.D. 07/07/2018 I44.1 Atrioventricular block, second degree Travis Marcus M.D. 07/07/2018 M16.11 Unilateral primary osteoarthritis, right Shanita Call M.D. hip 07/07/2018 Z95.0 Presence of cardiac pacemaker Travis Marcus M.D. 07/07/2018 M16.12 Unilateral primary osteoarthritis, left hip Shanita Call M.D. 07/07/2018 R07.9 Chest pain, unspecified Travis Marcus M.D. Plan of Treatment Future Appointment(s):06/22/2019 11:00 am - Travis [facility] M[facility]D. at [facility]12/20/2018 - Travis Marcus M.D.I44.1 Atrioventricular block , second degreeFollow up:6 woiizeT86.0 Presence of cardiac tnngzawixV51.2 Palpitations Functional Status Description No Information Available Mental Status Description No Information Available Referrals Description No Information Available
--- OUTSIDE RECORDS SUMMARY | 2019-01-02 10:10 | XMS REPORT | Summary of Care ---
:1945 Author Organization [facility] Address [address] [place] [address] Care Team Providers Name Role Phone Steve Thomas Primary Care Provider Reason for Visit Reason Comments Hypertension 6 week f/u. feels woosey when looking up outside-has to hold on to something. has been going on a long time just not getting any better. Encounter Details Date Type Department Care Team Description 11/04/2018 Office Visit [place] [facility] Steve Thomas, Need for vaccination Medicine (Primary Dx) [address] [place] [address] [place] [address] [phone] Allergies Active Allergy Reactions Severity Noted Date Comments Environmental Other 03/13/2009 Dust mite Red Dye Cardiac Reaction 06/15/2007 documented as of this encounter (statuses as of 11/04/2018) Medications Medication Sig Dispensed Refills Start Date End Date Status Multiple Take 1 Tab by 0 Active Vitamins-Minerals mouth TWICE (ICAPS AREDS FORMULA DAILY. PO) Acetaminophen (TYLENOL) Take by mouth. 0 Active 325 MG Oral Cap ALPRAZolam (XANAX) 0.5 Take 1 Tab by 40 Tab 0 04/20/2018 Active MG Oral TabIndications: mouth THREE Anxiety state TIMES DAILY NEEDED (anxiety). Max Daily Amount: 1.5 mg. LISINOPRIL-HCTZ 20-25 Take 1 Tab by 90 Tab 5 08/10/2018 08/10/2019 Active MG Oral Tab mouth DAILY. 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 Replaced inactive diagnosis Allergic rhinitis due to other allergen 03/13/2009 Overview: Dust mites. Diverticulosis of colon 02/08/2009 Overview: Colonoscopy normal 03/18-recommend repeat 10 years. White coat syndrome with diagnosis of hypertension 02/08/2009 Overview: Home blood pressure readings 110-120s Essential hypertension 09/21/2007 Generalized anxiety disorder 09/21/2007 Overview: Taper off celexa 2008 Prn xanax qhs. Mixed hyperlipidemia 09/21/2007 Overview: TC 216 07.HDL high 30s. Osteoarthritis documented as of this encounter (statuses as of 11/04/2018) Resolved Problems Problem Noted Date Resolved Date BMI 30.0-30.9,adult 09/29/2011 06/01/2018 Overweight (BMI 25.0-29.9) 05/14/2011 09/29/2011 Obesity 03/05/2009 11/19/2009 Overview: BMI 32 02/2009 Other screening mammogram 05/02/2003 06/15/2007 Other screening mammogram 04/26/2003 06/15/2007 documented as of this encounter (statuses as of 11/04/2018) Immunizations Name Administration Dates Next Due Influenza (IM) Preservative Free 01/11/2013, 11/25/2011, 11/13/2010, 11/22/2009, 02/08/2009 Influenza Vaccine 65 Yrs + 11/04/2018 Influenza Vaccine High Dose 11/11/2017, 11/17/2016, 11/02/2014, 11/10/2013 Influenza Vaccine Whole 12/03/1998 PNEUMOCOCCAL POLYSACCHARIDE VACCINE 02/08/2009 Pneumococcal Conjugate(13 Valent) 12/19/2014 TDAP Vaccine 01/06/2012 TETANUS & DIPHTHERIA TOXOID (OVER 7 08/24/2006 YRS) ZOSTER (ZOSTAVAX) VACCINE 01/06/2012 documented as of this encounter Social History Tobacco Use Types Packs/Day Years Used Date Never Smoker Smokeless Tobacco: Never Used Alcohol Use Drinks/Week oz/Week Comments Yes 0 Standard drinks or equivalent 0.0 OCC Sex Assigned at Date Recorded Not on file Job Start Date Occupation Industry Not on file Not on file Not on file Travel History Travel Start Travel End No recent travel history available. documented as of this encounter Last Filed Vital Signs Vital Sign Reading Time Taken Comments Blood Pressure 148/66 11/04/2018 11:48 AM EDT Pulse 64 11/04/2018 11:48 AM EDT Temperature - - Respiratory Rate - - Oxygen Saturation - - Inhaled Oxygen Concentration - - Weight 70.9 kg (156 lb 4.8 oz) 11/04/2018 11:48 AM EDT Height - - Body Mass Index 26.21 08/10/2018 3:29 PM EDT documented in this encounter Patient Instructions Patient InstructionsSteve Thomas MD - 11/04/2018 11:40 AM EDTPlease schedule medicare annual well visit. Continue blood pressure medication blood pressure is at goal Goal weight is 150 lb or less documented in this encounter Progress Notes Steve Thomas MD - 11/04/2018 11:40 AM EDT Britt Trujillo is a 73-y.o. female here for follow up hypertension she has lost weight with diet and walking 30 minutes most days Wt Readings from Last 3 Encounters: 11/04/18 156 lb 4.8 oz (70.9 kg) 08/10/18 165 lb (74.8 kg) 06/24/18 170 lb (77.1 kg) she tracks home blood pressure and weight blood pressure is now lower down to 120-130/80 range on lisinopril hydrochlorothiazide once daily no cardiovascular symptoms Exam .BP 148/66 Pulse 64 Wt 156 lb 4.8 oz (70.9 kg) BMI 26.21 kg/m2 S1 and S2 normal, no murmurs, clicks, gallops or rubs. Regular rate and rhythm. Chest is clear; no wheezes or rales. No edema or JVD. I spent 15 minutes with the patient, greater than half of this time in direct mgmy-bp-nwah counseling addressing the current condition and plan of care. ICD-9-CM ICD-10-CM 1. Need for vaccination V05.9 Z23 ME FLU VACCINE 65 YRS + 2 hypertension at goal continue current medications Patient Instructions Please schedule medicare annual well visit. Continue blood pressure medication blood pressure is at goal Goal weight is 150 lb or less documented in this encounter Plan of Treatment Date Type Specialty Care Team Description 11/18/2018 Lab Internal Medicine 03/14/2019 [facility] Dental Pinky Corrigan [facility] [address] [place] [id number] Health Maintenance Due Date Last Done Comments HIV SCREENING 01/13/1960 ZOSTER IMMUNIZATION SERIES 03/02/2012 01/06/2012 (2 of 3) MEDICARE ANNUAL WELLNESS 01/27/2016 01/26/2015, 01/26/2015, VISIT 01/24/2014, Additional history exists INFLUENZA VACCINE (#1) 2018 11/11/2017, 11/17/2016, 11/02/2014, Additional history exists DEPRESSION SCREENING 11/20/2018 11/20/2017 FALL RISK ASSESSMENT 11/20/2018 11/20/2017, 11/20/2017 MAMMOGRAM (SCREENING) 07/17/2019 07/16/2018, 06/04/2017, 02/13/2016, Additional history exists LIPID DISORDER SCREENING 09/23/2019 09/22/2018, 05/19/2018, 03/25/2018, Additional history exists COLONOSCOPY SCREENING 08/07/2021 08/07/2016, 08/07/2016, 03/17/2006 OSTEOPOROSIS SCREENING 01/11/2023 01/11/2013 (Previously completed), 03/16/2009, 02/10/2009 PNEUMOCOCCAL 65+YRS Completed 12/19/2014, 02/08/2009 HPV IMMUNIZATION SERIES Aged Out No longer eligible based on patient's age to complete this topic MENINGOCOCCAL VACCINE IMM Aged Out No longer eligible based on patient's age to complete this topic documented as of this encounter Goals Goal Patient Goal Associated Recent Patient-Stated? Author Type Problems Progress Blood Pressure Blood Pressure 148/66 No Krys, < 150/90 (11/04/2018 MD Pooja 11:48 AM EDT) Note: This is an individualized treatment (blood pressure) goal for Britt Trujillo: Displayed above (on the left) is your goal for blood pressure control. Your most recent blood pressure is also shown above, on the right. You should try to achieve blood pressures that are lower than your goal listed above (on the left). Weight loss vs. 18 mo Lifestyle 28.1 (11/04/2018 11:48 AM No Pooja Marcano MD max (lbs) >= 10 EDT) Note: This is an individualized lifestyle goal for Britt Trujillo: Your body mass index (BMI) is more than 30. You should lose weight. A reasonable starting goal is to lose 10 pounds. Displayed above is how many pounds you have lost thus far towards your 10 pound weight loss goal. Take all prescribed medications as directed Self-management Pooja Moreno MD Note: This is an individualized self-management goal for Britt Trujillo: Please take all prescribed medications as directed. 1. Do not skip doses. If you cannot afford your medications, talk with your doctor. 2. Use a pill reminder system such as a pill box if needed. Your pharmacist can help you with this. 3. Contact your Pharmacy 5 days before your medication runs out. If you cannot take your medications for any reasons, talk with your doctor. 4. Please bring all of your medication bottles and inhalers (or a list of all your medications/inhalers) with you to every visit. Potential barriers to meeting all of your care plan goals will continue to be addressed on an ongoing basis. documented as of this encounter Results Not on filedocumented in this encounter Visit Diagnoses Diagnosis Need for vaccination - Primary Need for prophylactic vaccination and inoculation against unspecified single disease documented in this encounter Insurance Payer Benefit Plan / Subscriber ID Effective Dates Phone Address Type Group MEDICARE MEDICARE PART xxxxxxxxxxx 2009-Prese Medicare A & B nt BC NATIONAL BC NATIONAL xxxxxxxxx 2015-Pres Blue t Cross/Blue Shield Guarantor Name Account Type Relation to Date of Phone Billing Patient Address Britt Trujillo Personal/Family 1945 [phone] [phone] [place], [place] (Work) [id number] documented as of this encounter Advance Directives Type Date Recorded Patient Progressive Care Unit Registered Nurse Explanation Advance Directives 03/27/2009 12:44 PM [place] Living Will and Living Will
--- OUTSIDE RECORDS SUMMARY | 2019-01-02 10:10 | XMS REPORT | Continuity of Care Document ---
:1945 External Reference #:[id number] Author Name Travis Marcus M.D. (transmitted by agent of provider Nancy Avitia) Address [address] [place] [address] Care Team Providers Name Role Phone Steve Thomas MD - Internal Care Team Information Milk Pasteurizer Medicine Problems Active Problems Provider Date Localized, [...] by mouth every Unknown 20mg day Tablets Immunizations Description No Information Available Vital Signs Date Vital Result Comment 09/10/2018 [...] cuff BMI (Body Mass Index) 27.6 kg/m2 Results Description No Information Available Procedures Date Code Description Status 11/26/2018 22061 Dest Lesion Each Addl Lesion 2 Through 14 Each Completed 11/26/2018 28493 Destruction ALL Benign Or Premalignant Lesion (Other Than Completed [place] 11/08/2018 47764 Icd Eval Sing,Dual,Multi Lead Remote Recpt Transm Tech Rev Completed Tech S 11/08/2018 65198 Pacemaker Check Remote Up To 90Days Single,Dual,Multiple Completed Lead 11/08/2018 09247 Icd Eval Sing,Dual,Multi Lead Remote Recpt Transm Tech Rev Completed Tech S 11/08/2018 29051 Pacemaker Check Remote Up To 90Days Single,Dual,Multiple Completed Lead 08/20/2018 47189 Pace Maker Eval W/Iterative Adjment Dual Lead Completed 08/20/2018 09665 Pace Maker Eval W/Iterative Adjment Dual Lead Completed 07/16/2018 15411 ECHO Transthoracic, Real-Time 2D With Doppler And Color Completed Flow 07/16/2018 41143 ECHO Transthoracic, Real-Time 2D With Doppler And Color Completed Flow 07/07/2018 94397 EKG Tracing & Interpretation Completed Medical Devices Description No Information Available Encounters Type Date Location Provider Dx Diagnosis Office Visit 11/26/2018 [facility] Chito Gilliland MD L82.1 Other seborrheic 10:50a keratosis L57.0 Actinic keratosis Office Visit 09/10/2018 [place] Shanita M16.11 Unilateral primary 11:00a [facility] osteoarthritis, right [place] hip M16.12 Unilateral primary osteoarthritis, left hip M25.552 Pain in left hip M25.551 Pain in right hip Office Visit 07/30/2018 12:15p [place] [facility] Travis Prakash Z95.0 Presence of Of Lisandro Marcus M.D. cardiac pacemaker R06.02 Shortness of breath Office Visit 07/07/2018 3:45p [place] [facility] Travis Prakash Z95.2 Presence of Of Lisandro Marcus M.D. prosthetic heart valve R00.2 Palpitations I44.1 Atrioventricular block, second degree Z95.0 Presence of cardiac pacemaker R07.9 Chest pain, unspecified Office Visit 07/07/2018 8:15a [facility] [facility] Shanita Call, M25.552 Pain in left at [place] M.D. hip M25.551 Pain in right hip M16.11 Unilateral primary osteoarthritis, right hip M16.12 Unilateral primary osteoarthritis, left hip Assessments Date Code Description Provider 11/26/2018 L82.1 Other seborrheic keratosis Chito Gilliland [...] Travis Marcus M.D. Plan of Treatment Future Appointment(s):12/20/2018 11:00 am - Travis Marcus M.D. at [place] [facility]12/01/2014 - Shanita Call M.D.M25.562 Pain in left kneeNew Medication:Naproxen 500 mg - 1 po bid prn painFollow up:Follow up: 4 lxhqyJ91.12 Unilateral primary osteoarthritis, left knee Functional Status Description No Information Available Mental Status Description No Information Available Referrals Description No Information Available
[2019-01-02] MEDS ORDERED: NS 0.9% 1000 ML** 1,000 ML IV ONE (10:12)
[2019-01-02 10:28] LABS: ABS Lymphocytes 0.9 10^3/ul (1.0-4.8); ABS Monocytes 0.3 10^3/ul (0-0.8); ABS Neutrophils 3.8 10^3/ul (1.5-7.7); Eosinophil % 0.9 %; Hematocrit 39 % (35-47); Hemoglobin 13.3 g/dL (12.0-16.0); Mean Corpuscular HGB Conc 34 g/dL (31-36); Mean Corpuscular Hemoglobin 30 pg (27-31); Mean Corpuscular Volume 88 fL (80-97); Mean Platelet Volume 7.7 fL (7.4-10.4); Nucleated Red Blood Cells % 0.1; Platelet Count 206 10^3/uL (150-450); Red Blood Count 4.45 10^6 /uL (3.70-4.87); Red Cell Distribution Width 13 % (10-15)
[2019-01-02 10:34] LABS: INR 1.06 (0.82-1.09)
--- NOTE | 2019-01-02 10:38 | ED ---
HPI Chest Pain - HPI Summary HPI Summary: Patient is a 73 y/o F w/ pacemaker who presents to [facility] with complaints of chest pressure, SOB, and light-headedness. She notes that SOB has been present for the past few weeks and is worsened with exertion. In the past few days, she has been experiencing chest pressure and light-headedness. Currently, chest pressure is rated 0/10. Previously, it was 2-3/10 in severity. Dizziness has resolved as well. She denies fever, cough, BLE edema, N/V/D, constipation, dysuria and recent weight gain. No Hx of CHF reported. Home medications and allergies are reviewed. In room, vitals are 169/71, o2 97 on RA, and pulse 71. - History of Current Complaint Time Seen by Provider: 01/02/19 10:12 Hx Obtained From: Patient Onset/Duration: Started Days Ago - chest pressure and light-headedness, Started Weeks Ago - SOB, Resolved - chest pressure and light-headedness Timing: Lasting Days - chest pressure and light-headedness, Lasting Weeks - SOB Current Severity: None Pain Intensity: 0 Pain Scale Used: 0-10 Numeric Character: Dyspnea at Exertion, Pressure/Squeezing Associated Signs and Symptoms: Positive: Chest Pain, Shortness of Breath, Lightheadedness, Other: - negative - diarrhea, constipation, dysuria, and recent weight gain. Negative: Swelling, Fever, Nausea, Cough, Productive Cough , Nonproductive Cough, Calf Pain/Swelling, Vomiting - Additional Pertinent History Primary Care Physician: [id number] - Allergy/Home Medications Allergies/Adverse Reactions: Allergies Allergy/AdvReac Type Severity Reaction Status Date / Time chlorhexidine Allergy Rash Verified 01/02/19 10:15 red (food color) Allergy Palpitation Verified 01/02/19 10:15 s [id number] Reductase Allergy See Comment Verified 01/02/19 10:15 Inhibitor dust mites Allergy Congestion Uncoded 04/12/18 13:29 PMH/Surg Hx/FS Hx/Imm Hx Endocrine/Hematology History: Denies: Hx Diabetes Cardiovascular History: Reports: Hx Hypertension - ON DAILY MEDS, CONTROLLED, Hx Pacemaker/ICD - 04/13/18, 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 1970 ANAL [facility]. 1999 RT SHOULDER [facility]. 2000 [facility] Hx Anesthesia Reactions: Yes - SLOW TO WAKE UP Infectious Disease History: No Infectious Disease History: Denies: Traveled Outside the [place] in Last 30 Days - Family History Known Family History: Positive: Cardiac Disease, Hypertension, Other - stroke - Social History Alcohol Use: None Hx Substance Use: No Substance Use Type: Reports: None Hx Tobacco Use: No Smoking Status (MU): Never Smoked Tobacco Review of Systems Constitutional: Other - negative - recent weight gain Negative: Fever Positive: Chest Pain Positive: Shortness Of Breath. Negative: Cough Gastrointestinal: Other - negative - constipation Negative: Vomiting, Diarrhea, Nausea Negative: dysuria Negative: Edema - BLE Neurological: Other - positive - light-headedness All Other Systems Reviewed And Are Negative: Yes Physical Exam - Summary Physical Exam Summary: VITAL SIGNS: Reviewed. GENERAL: Patient is a well-developed and nourished female who is lying comfortable in the stretcher. Patient is not in any acute respiratory distress. There is a pacemaker at left side of chest. HEAD AND FACE: No signs of trauma. No ecchymosis, hematomas or skull depressions. No sinus tenderness. EYES: PERRLA, EOMI x 2, No injected conjunctiva, no nystagmus. EARS: Hearing grossly intact. Ear canals and tympanic membranes are within normal limits. MOUTH: Oropharynx within normal limits. NECK: Supple, trachea is midline, no adenopathy, no JVD, no carotid bruit, no c- spine tenderness, neck with full ROM. CHEST: Symmetric, no tenderness at palpation. LUNGS: Clear to auscultation bilaterally. No wheezing or crackles. CVS: Regular rate and rhythm, S1 and S2 present, no murmurs or gallops appreciated. ABDOMEN: Soft, non-tender. No signs of distention. No rebound, no guarding, and no masses palpated. Bowel sounds are normal. EXTREMITIES: FROM in all major joints, no edema, no cyanosis or clubbing. NEURO: Alert and oriented x 3. No acute neurological deficits. Speech is normal and follows commands. GCS 15. SKIN: Dry and warm. Triage Information Reviewed: Yes Vital Signs On Initial Exam: Initial Vitals Temp Pulse Resp BP Pulse Ox 97.9 F 74 16 78/65 99 01/02/19 10:12 01/02/19 10:12 01/02/19 10:12 01/02/19 10:12 01/02/19 10:12 Vital Signs Reviewed: Yes - Shala Coma Scale Best Eye Response: 4 - Spontaneous Best Motor Response: 6 - Obeys Commands Best Verbal Response: 5 - Oriented Coma Scale Total: 15 Procedures - Sedation Patient Received Moderate/Deep Sedation with Procedure: No Diagnostics - Vital Signs Vital Signs Temp Pulse Resp BP Pulse Ox 01/02/19 10:12 97.9 F 74 16 78/65 99 - Laboratory Result Diagrams: 01/02/19 10:14 01/02/19 10:14 Lab Statement: Any lab studies that have been ordered have been reviewed, and results considered in the medical decision making process. - Radiology CXR Radiology Interpretation Completed By: Radiologist Summary of Radiographic Findings: IMPRESSION: NO ACTIVE CARDIOPULMONARY DISEASE IS NOTED. THIS REPORT WAS REVIEWED BY DR. MANN. - CT BRAIN CT CT Interpretation Completed By: Radiologist Summary of CT Findings: IMPRESSION: There is no evidence of intracranial mass or hemorrhage noted. THIS REPORT WAS REVIEWED BY DR. MANN. - EKG 1006 Cardiac Rate: Other Rate - ventricular paced rhythm with rate of 79 BPM EKG Comparison: No Significant Change - similar compared to 09/21/18 Summary of EKG Findings: EKG showed ventricular paced rhythm with rate of 79 BPM , similar to EKG done 09/21/18. This EKG was reviewed and interpreted by Dr. Mann. Re-Evaluation - Re-Evaluation First Eval Re-Evaluation Time: 16:21 Change: Improved Comment: Patient's BP is under control. She was ambulated a couple of times in ED with steady gait. Patient was discharged to home. Chest Pain Course/Dx - Course Assessment/Plan: This patient is a 73-year-old female who presents to the emergency department with a chief complaint of having dizziness and chest pressure. Blood test results without any significant abnormality except for creatinine 1.07 and glucose 131. Past medical history significant for high degree AV block status post pacemaker placement, hypertension, anxiety. Chest x -ray impression: No active cardiopulmonary disease noted. EKG shows a ventricular paced rhythm without any changes from the previous EKG. In the ED course the patients systolic blood pressure has been elevated therefore the patient was given 1 dose [address]. Head CT impression: No acute intracranial pathology. The patient is ambulating freely in the ED without any difficulty this time. Patients blood pressure was elevated and she reports that she is very anxious. She takes tenosynovitis at home. Therefore the patient was given Ativan. After that the patients blood pressure decreased. At this point the patient is asymptomatic. Therefore, the patient will be discharged home with follow-up with the primary care physician. - Chest Pain Differential Diagnosis/HQI/PQRI: Acute MA, ACS, Angina, CHF, Chest Wall, GI Disease, Lower Respiratory Infection, Pulmonary Edema - Diagnoses Provider Diagnoses: Chest pain Discharge ED - Sign-Out/Discharge Documenting (check all that apply): Patient Departure - discharge - Discharge Plan Condition: Stable Disposition: HOME Patient Education Materials: Chest Pain (ED) Referrals: Steve Thomas MD [Primary Care Provider] - 3 Days Additional Instructions: PLEASE RETURN TO ED FOR ANY NEW OR WORSENING SYMPTOMS. PLEASE FOLLOW UP WITH YOUR PRIMARY CARE PHYSICIAN WITHIN THREE DAYS. - Billing Disposition and Condition Condition: STABLE Disposition: Home - Attestation Statements Document Initiated by Ninfa: Yes Documenting Scribe: ROSALIO SENIOR Provider For Whom Ninfa is Documenting (Include Credential): JOLENE MANN MD Scribe Attestation: ROSALIO Eldridge scribed for JOLENE MANN MD on 01/03/19 at 1238. Scribe Documentation Reviewed: Yes Provider Attestation: The documentation as recorded by the ROSALIO fuentes accurately reflects the service I personally performed and the decisions made by , JOLENE MANN MD Status of Scribe Document: Viewed
[2019-01-02 10:44] LABS: Albumin 3.8 g/dL (3.2-5.2); Calcium 9.2 mg/dL (8.6-10.3); Potassium 3.5 mmol/L (3.5-5.0); Total Bilirubin 0.4 mg/dL (0.2-1.0)
[2019-01-02 10:50] LABS: Albumin/Globulin Ratio 1.2 (1-3); BUN/Creatinine Ratio 13.1 (8-20); EGFR African American 60.7 (>60); EGFR Non-African American 50.1 (>60); Globulin 3.2 g/dL (2-4)
[2019-01-02 10:51] LABS: Troponin I 0.01 ng/mL (<0.03)
[2019-01-02 11:01] LABS: CKMB ng/mL 1.8 ng/mL (0.6-6.3)
[2019-01-02 11:19] LABS: TSH (Thyroid Stimulating Horm) 1.39 mcIU/mL (0.34-5.60)
[2019-01-02 13:47] LABS: Urine Appearance Clear; Urine Bilirubin Negative (Negative); Urine Blood Negative (Negative); Urine Color Yellow; Urine Glucose Negative (Negative); Urine Ketones Negative (Negative); Urine Nitrite Negative (Negative); Urine Protein Negative (Negative); Urine Specific Gravity 1.006 (1.010-1.030); Urine Urobilinogen Negative (Negative)
[2019-01-02 14:04] LABS: Urine Bacteria Absent (Absent); Urine Red Blood Cell Trace(0-2/hpf) (Absent); Urine White Blood Cell Trace(0-5/hpf) (Absent)
[2019-01-02] MEDS ORDERED: Furosemide IV* 10 MG/ML 2 ML VIAL (20 MG) IV ONE (14:22)
[2019-01-02] MEDS ORDERED: Meclizine TAB* 12.5 MG PO ONE (14:45)
[2019-01-02] MEDS ORDERED: hydrALAZINE IV* 20 MG/ML VIAL IV SLOW PU ONE (15:11)
[2019-01-02] MEDS ORDERED: LORazepam INJ* 2 MG/ML 1 ML VIAL IV PUSH ONE (15:14)
[2019-01-02] MEDS ORDERED: Lorazepam PYXIS KEY PRN (15:14)
[2019-01-02 16:40] VITALS: BP 148/74
== END 2019-01-02 16:50 | disposition home or self-care (01) ==
LOC: ED 10:03
DX: R07.9 Chest pain, unspecified (principal); I10 Essential (primary) hypertension; F41.9 Anxiety disorder, unspecified; I44.39 Other atrioventricular block; Z95.0 Presence of cardiac pacemaker; Z79.899 Other long term (current) drug therapy; Z88.8 Allergy status to other drugs, medicaments and biological substances
CPT/HCPCS: 36415; 70450; 71045; 80053; 81003; 81015; 82553; 83605; 83735; 83880; 84443; 84484; 85025; 85610; 87086; 93005; 96361; 96374; 96375; 99284; A9270-GY; J1940; J2060